=== PATIENT | male | born 1935 | race Caucasian/White ===

== ENCOUNTER 2018-01-19 05:34 | Inpatient (IN) ==
[2018-01-19] MEDS ORDERED: DIAZEPAM 5 MG TABLET PO ONE (07:29)
[2018-01-19] MEDS ORDERED: diphenhydrAMINE CAP 25 MG CAPSULE PO ONE (07:29)
[2018-01-19] MEDS ORDERED: MAGNESIUM SULF RIDER 2 GM in PREMIX 1 EACH IV PRN (07:29)
[2018-01-19] MEDS ORDERED: POTASSIUM CHLORIDE RIDER 10 MEQ in PREMIX 1 EACH IV PRN (07:29)
[2018-01-19] MEDS ORDERED: ASPIRIN 325 MG TABLET PO ONE (07:29)
[2018-01-19] MEDS ORDERED: DEXTROSE 5% NACL 0.45% 1,000 ML IV SCH (07:30)
[2018-01-19 08:00] LABS: INR 1.4; PT Patient Result 14.7 SECS
[2018-01-19] MEDS ORDERED: DIAZEPAM 5 MG TABLET ONE (08:18)
[2018-01-19] MEDS ORDERED: ASPIRIN 325 MG TABLET ONE (08:18)
[2018-01-19] MEDS ORDERED: diphenhydrAMINE CAP 25 MG CAPSULE ONE (08:18)
[2018-01-19] MEDS ORDERED: MIDAZOLAM 2 MG/2 ML VIAL ONE (08:25)
[2018-01-19] MEDS ORDERED: LIDOCAINE 1%/EPI INJ 20 ML VIAL ONE (08:25)
[2018-01-19] MEDS ORDERED: HEPARIN/NACL 0.9% 2 UNITS/ML 1,000 ML IV ONE (08:25)
[2018-01-19] MEDS ORDERED: fentaNYL 100 MCG/2 ML VIAL ONE (08:26)
[2018-01-19] MEDS ORDERED: WARFARIN 2 MG TABLET PO SCH (10:00)
[2018-01-19] MEDS ORDERED: WARFARIN 4 MG TABLET PO SCH (10:00)
[2018-01-19] MEDS ORDERED: ACETAMINOPHEN 325 MG TABLET PO PRN (15:37)
[2018-01-19] MEDS ORDERED: ACETAMINOPHEN/CODEINE 300-30 MG TABLET PO PRN (15:37)
[2018-01-19] MEDS: HYDROmorphone 2 MG/1 ML VIAL IV PRN (20:55)
[2018-01-19] MEDS: GLIMEPIRIDE 4 MG TABLET PO SCH (20:55)
[2018-01-19] MEDS: TAMSULOSIN 0.4 MG CAPSULE PO SCH (20:55)
[2018-01-19] MEDS: LISINOPRIL 10 MG TABLET PO SCH (20:55)
[2018-01-20] MEDS ORDERED: hydrALAZINE 20 MG/1 ML VIAL IV PRN (00:41)
[2018-01-20] MEDS: HYDROmorphone 2 MG/1 ML VIAL IV PRN ×2 (02:27→21:19)
[2018-01-20 04:38] LABS: Basophils # 0.1 10*3/uL (0.0-0.2); Basophils % 0.5 % (0.0-0.8); Eosinophils # 0.2 10*3/uL (0.0-0.87); Eosinophils % 1.4 % (0.00-10.9); Hematocrit 40.7 VOL% (42.0-52.0); Hemoglobin 13.3 GM/DL (14.0-18.0); Immature Granulocytes % 0.3 %; Immature Granulocytes Absolute 0.04 #; Lymphocytes # 1.2 10*3/uL (1.4-4.0); Lymphocytes % 9.1 % (21.2-54.2); Mean Corpuscular HGB Conc 32.7 GM/DL (32-36); Mean Corpuscular Hemoglobin 30 PG (27-34); Mean Corpuscular Volume 90.8 FL (87-102); Mean Platelet Volume 10.6 FL (9.6-12.0); Monocytes # 1.4 10*3/uL (0.11-0.8); Monocytes % 10.6 % (1.7-12.7); Neutrophils # 10.2 10*3/uL (1.4-7.4); Neutrophils % 78.1 % (38.7-73.9); Platelet Count 276 T/CUMM (130-400); Red Blood Count 4.48 MC/CUMM (3.8-5.5); Red Cell Distribution Width 14.5 % (9.3-17.3); White Blood Count 13.1 T/CUMM (4-12)
[2018-01-20 05:06] LABS: Potassium 3.8 MMOL/L (3.5-5.1)
[2018-01-20] MEDS ORDERED: CEFUROXIME INJ 1,500 MG in SYRINGE 1 EACH IV ONE (06:16)
[2018-01-20] MEDS ORDERED: DEXTROSE 50% 25 GM/50 ML VIAL IV PRN (06:16)
[2018-01-20] MEDS ORDERED: GLUCAGON 1 MG VIAL IM PRN (06:16)
[2018-01-20 06:38] LABS: ABG HCO3 25.2 MMOL/L (20-26); ABG Oxygen Saturation 94.8 % (95-100); ABG PH 7.436 (7.35-7.45); ABG PO2 71.5 MM HG (80-95); ABG TCO2 21.6 MMOL/L (23-27)
[2018-01-20] MEDS: DILTIAZEM CD 300 MG CAPSULE PO SCH ×2 (07:26→10:48)
[2018-01-20] MEDS ORDERED: ENOXAPARIN 80 MG/0.8 ML SYRINGE SUBCUT ONE (09:00)
[2018-01-20] MEDS ORDERED: ATROPINE 1 MG/10 ML SYRINGE ONE (09:29)
[2018-01-20] MEDS: SODIUM CHLORIDE 0.9% 1,000 ML IV SCH (10:47)
[2018-01-20] MEDS: CHLORHEXIDINE 4% SOLN 118 ML BOTTLE TOP SCH ×2 (10:48→18:41)
[2018-01-20] MEDS ORDERED: ETOMIDATE 40 MG/20 ML VIAL IV ONE (11:11)
[2018-01-20] MEDS ORDERED: PROPOFOL 200 MG/20 ML VIAL IV ONE (11:11)
[2018-01-20] MEDS: GLIMEPIRIDE 4 MG TABLET PO SCH ×2 (11:23→21:19)
[2018-01-20] MEDS: CITALOPRAM 20 MG TABLET PO SCH (11:23)
[2018-01-20] MEDS: TAMSULOSIN 0.4 MG CAPSULE PO SCH ×2 (11:23→21:19)
[2018-01-20] MEDS: GEMFIBROZIL 600 MG TABLET PO SCH (11:23)
[2018-01-20] MEDS: LISINOPRIL 10 MG TABLET PO SCH ×2 (11:23→21:19)
[2018-01-20] MEDS: CHLORHEXIDINE 0.12% ORAL RINSE 60 ML BOTTLE SWISH/SPIT SCH ×2 (12:38→21:19)
[2018-01-20] MEDS ORDERED: DIGOXIN 0.125 MG TABLET PO SCH (13:00)
[2018-01-21] MEDS: CHLORHEXIDINE 4% SOLN 118 ML BOTTLE TOP SCH (04:34)
[2018-01-21] MEDS ORDERED: VANCOMYCIN 1,000 MG VIAL ONE (05:19)
[2018-01-21] MEDS ORDERED: FAMOTIDINE 20 MG TABLET PO ONE (05:30)
[2018-01-21] MEDS: LISINOPRIL 10 MG TABLET PO SCH ×2 (05:41→11:33)
[2018-01-21] MEDS: DILTIAZEM CD 300 MG CAPSULE PO SCH ×2 (05:41→11:38)
[2018-01-21] MEDS: CHLORHEXIDINE 0.12% ORAL RINSE 60 ML BOTTLE SWISH/SPIT SCH ×3 (05:42→22:18)
[2018-01-21] MEDS ORDERED: diphenhydrAMINE CAP 25 MG CAPSULE PO ONE (06:00)
[2018-01-21] MEDS ORDERED: CEFUROXIME INJ 1,500 MG in SYRINGE 1 EACH IV ONE (06:00)
[2018-01-21] MEDS ORDERED: DIAZEPAM 5 MG TABLET PO ONE ×2 (06:00→06:09)
[2018-01-21] MEDS ORDERED: SUFentanil 250 MCG/5 ML AMP ONE (06:15)
[2018-01-21] MEDS ORDERED: ALBUMIN 5% 12.5 GM/250 ML VIAL IV ONE ×2 (06:43→09:47)
[2018-01-21 07:45] LABS: ABG Base Excess -3.3 MMOL/L (-2.5-2.5); ABG HCO3 21.4 MMOL/L (20-26); ABG Oxygen Saturation 99.4 % (95-100); ABG PCO2 37.3 MM HG (35-48); ABG PH 7.376 (7.35-7.45); ABG PO2 405.1 MM HG (80-95); ABG TCO2 22.5 MMOL/L (23-27); Glucose Heart Surgery 68 MG/DL (74-106); Ionized Calcium Arterial 1.06 MMOL/L (1.21-1.46); PCO2 Patient Temp Arterial 37.3 MMHG; PH Patient Temp Arterial 7.376; PO2 Patient Temp Arterial 405.1 MM HG; Patient Temperature 37 CELCIUS; Potassium Heart/CVR 3.2 MMOL/L (3.5-5.1); Sodium Heart/CVR 140 MMOL/L (135-145)
[2018-01-21 07:56] LABS: Apearance,Urine CLEAR (Clear); Bilirubin,Urine Negative (Negative); Blood, Urine Negative (Negative); Glucose,Urine (UA) Negative (Negative); Ketones,Urine Negative (Negative); Mucus,Urine Occasional /LPF (Occasional); Nitrite,Urine Negative (Negative); Protein,Urine 30 MG/DL; RBC,Urine 7 /HPF (0-4); Squamous Epithelial Cell,Urine Occasional /HPF (0-10); Urine Color Yellow (Yellow); Urine Specific Gravity 1.013 (1.001-1.035); WBC,Urine 1 /HPF (0-6)
[2018-01-21 08:26] LABS: Hematocrit Heart Surgery 26.7 PERCENT (42-52); Hemoglobin Heart Surgery 8.6 G/DL (14.0-18.0); PCO2 Patient Temp Venous 41.2 MM HG; PH Patient Temp Venous 7.362; Potassium Heart/CVR 3.5 MMOL/L (3.5-5.1); VBG Base Excess -1.9 MEQ/L (0-4); VBG HCO3 22.6 MEQ/L (24-28); VBG PCO2 41.2 MMHG (41-51); VBG PH 7.362
[2018-01-21 08:55] LABS: Hematocrit Heart Surgery 27.1 PERCENT (42-52); Hemoglobin Heart Surgery 8.7 G/DL (14.0-18.0); PCO2 Patient Temp Venous 35.1 MM HG; PH Patient Temp Venous 7.403; PO2 Patient Temp Venous 40.6 MM HG; Potassium Heart/CVR 3.6 MMOL/L (3.5-5.1); VBG Base Excess -2.3 MEQ/L (0-4); VBG HCO3 22.2 MEQ/L (24-28); VBG Oxygen Saturation 81.3 %; VBG PCO2 38.7 MMHG (41-51); VBG PH 7.374; VBG PO2 46.6 MMHG (17-40)
[2018-01-21] MEDS ORDERED: PROTAMINE SULFATE 250 MG/25 ML VIAL IV ONE (09:33)
[2018-01-21] MEDS ORDERED: ALBUMIN 25% 25 GM/100 ML VIAL IV ONE (09:33)
[2018-01-21] MEDS ORDERED: MAGNESIUM SULFATE 10 GM/20 ML VIAL IV ONE (09:33)
[2018-01-21] MEDS ORDERED: DEXTROSE 5% KCL 20 MEQ 20 MEQ/1,000 ML BAG IV ONE (09:33)
[2018-01-21] MEDS ORDERED: SODIUM BICARBONATE 50 MEQ/50 ML SYRINGE IV ONE ×3 (09:33→10:37)
[2018-01-21] MEDS ORDERED: MANNITOL 12.5 GM/50 ML VIAL IV ONE (09:34)
[2018-01-21] MEDS ORDERED: FUROSEMIDE 20 MG/2 ML VIAL ONE (09:34)
[2018-01-21] MEDS ORDERED: POTASSIUM CHLORIDE 20 MEQ/10 ML VIAL ONE (09:34)
[2018-01-21] MEDS ORDERED: PHENYLEPHRINE 1 MG/10 ML SYRINGE IV ONE (09:34)
[2018-01-21] MEDS ORDERED: methylPREDNISolone SOD SUC 1,000 MG/8 ML VIAL ONE (09:34)
[2018-01-21] MEDS ORDERED: HEPARIN 10,000 UNIT/10 ML VIAL ONE (09:34)
[2018-01-21 09:45] LABS: ABG HCO3 20.3 MMOL/L (20-26); ABG PCO2 37.3 MM HG (35-48); ABG PH 7.342 (7.35-7.45); ABG TCO2 18.7 MMOL/L (23-27); Glucose Heart Surgery 206 MG/DL (74-106); Hematocrit Heart Surgery 27.7 PERCENT (42-52); Hemoglobin Heart Surgery 8.9 G/DL (14.0-18.0); Ionized Calcium Arterial 1.16 MMOL/L (1.21-1.46); PCO2 Patient Temp Arterial 37.3 MMHG; PH Patient Temp Arterial 7.342; Patient Temperature 37 CELCIUS; Potassium Heart/CVR 3.7 MMOL/L (3.5-5.1); Sodium Heart/CVR 135 MMOL/L (135-145)
[2018-01-21] MEDS ORDERED: POTASSIUM CHLORIDE RIDER 100 ML IV ONE (09:45)
[2018-01-21] MEDS ORDERED: CALCIUM CHLORIDE 1,000 MG/10 ML SYRINGE IV ONE (09:45)
[2018-01-21] MEDS ORDERED: PHENYLEPHRINE DRIP 40 MG/250 ML PREMIX IV ONE (09:45)
[2018-01-21] MEDS ORDERED: NITROGLYCERIN DRIP 50 MG/250 ML BOTTLE IV ONE ×2 (10:00→10:38)
[2018-01-21] MEDS ORDERED: AMIODARONE 450 MG/9 ML VIAL IV ONE (10:00)
[2018-01-21] MEDS ORDERED: MIDAZOLAM 10 MG/2 ML VIAL ONE ×2 (10:28→10:37)
[2018-01-21] MEDS ORDERED: AMIODARONE INJ 450 MG in DEXTROSE 5% 241 ML IV SCH ×2 (10:30→11:30)
[2018-01-21] MEDS ORDERED: CALCIUM CHLORIDE 1,000 MG/10 ML VIAL IV ONE (10:36)
[2018-01-21] MEDS ORDERED: HEPARIN/NACL 0.9% 2 UNITS/ML 500 ML IV ONE (10:37)
[2018-01-21] MEDS ORDERED: AMIODARONE 150 MG/3 ML VIAL ONE (10:37)
[2018-01-21] MEDS ORDERED: PHENYLEPHRINE DRIP 20 MG/250 ML PREMIX IV ONE (10:37)
[2018-01-21] MEDS ORDERED: SEVOFLURANE 1 UNIT/15 MINUTE INH ONE (10:38)
[2018-01-21] MEDS ORDERED: VECURONIUM 10 MG VIAL IV ONE (10:38)
[2018-01-21] MEDS ORDERED: SODIUM CHLORIDE 0.9% 100 ML IV ONE (10:38)
[2018-01-21] MEDS ORDERED: LACTATED RINGERS 1,000 ML IV ONE (10:38)
[2018-01-21] MEDS ORDERED: SODIUM CHLORIDE 0.9% 1,000 ML IV ONE (10:38)
[2018-01-21] MEDS ORDERED: SODIUM CHLORIDE 0.9% 250 ML IV ONE (10:38)
[2018-01-21] MEDS ORDERED: ETOMIDATE 40 MG/20 ML VIAL IV ONE (10:38)
[2018-01-21] MEDS ORDERED: INSULIN REGULAR 100 UNIT/ML IV ONE (10:42)
[2018-01-21] MEDS ORDERED: MAGNESIUM SULF RIDER 2 GM in PREMIX 1 EACH IV PRN (10:42)
[2018-01-21] MEDS ORDERED: NITROPRUSSIDE 100 MG in DEXTROSE 5% 250 ML IV PRN (10:42)
[2018-01-21] MEDS ORDERED: INSULIN REGULAR 100 UNIT/ML IV PRN (10:42)
[2018-01-21] MEDS ORDERED: MAGNESIUM SULF RIDER 4 GM in PREMIX 1 EACH IV PRN (10:42)
[2018-01-21] MEDS ORDERED: MIDAZOLAM 2 MG/2 ML VIAL IV PRN (10:42)
[2018-01-21] MEDS ORDERED: ONDANSETRON 4 MG/2 ML VIAL IV PRN (10:42)
[2018-01-21] MEDS ORDERED: CALCIUM CHLORIDE 1,000 MG/10 ML SYRINGE IV PRN (10:42)
[2018-01-21] MEDS ORDERED: MORPHINE 4 MG/1 ML VIAL IV PRN (10:42)
[2018-01-21] MEDS ORDERED: ACETAMINOPHEN 650 MG SUPP RECTAL PRN (10:42)
[2018-01-21] MEDS ORDERED: LACTATED RINGERS 250 ML IV PRN (10:42)
[2018-01-21] MEDS ORDERED: MORPHINE 10 MG/1 ML VIAL IV PRN (10:42)
[2018-01-21] MEDS ORDERED: PHENYLEPHRINE DRIP 40 MG/250 ML PREMIX IV PRN (10:42)
[2018-01-21] MEDS ORDERED: DEXTROSE 50% 25 GM/50 ML VIAL IV PRN ×2 (10:42)
[2018-01-21] MEDS ORDERED: VECURONIUM 10 MG VIAL IV PRN ×2 (10:42)
[2018-01-21] MEDS ORDERED: MIDAZOLAM 10 MG/2 ML VIAL IV PRN (10:42)
[2018-01-21 10:45] LABS: ABG Base Excess -3.2 MMOL/L (-2.5-2.5); ABG HCO3 21.7 MMOL/L (20-26); ABG Oxygen Saturation 98.1 % (95-100); ABG PCO2 42.6 MM HG (35-48); ABG PH 7.332 (7.35-7.45); ABG TCO2 20.9 MMOL/L (23-27); Glucose Heart Surgery 191 MG/DL (74-106); Hematocrit Heart Surgery 28.3 PERCENT (42-52); Hemoglobin Heart Surgery 9.1 G/DL (14.0-18.0); Potassium Heart/CVR 3.9 MMOL/L (3.5-5.1)
[2018-01-21] MEDS ORDERED: PROTAMINE SULFATE 50 MG/5 ML VIAL IV ONE ×2 (10:45→10:51)
[2018-01-21] MEDS ORDERED: INSULIN REGULAR DRIP 100 ML IV SCH (11:00)
[2018-01-21] MEDS: SODIUM CHLORIDE 0.45% 1,000 ML IV SCH ×2 (11:28)
[2018-01-21] MEDS: GEMFIBROZIL 600 MG TABLET PO SCH (11:37)
[2018-01-21] MEDS: GLIMEPIRIDE 4 MG TABLET PO SCH (11:38)
[2018-01-21] MEDS: SODIUM CHLORIDE 0.9% 1,000 ML IV SCH (11:38)
[2018-01-21] MEDS: CITALOPRAM 20 MG TABLET PO SCH (11:38)
[2018-01-21] MEDS: TAMSULOSIN 0.4 MG CAPSULE PO SCH (11:38)
[2018-01-21] MEDS: POTASSIUM CHLORIDE RIDER 20 MEQ in PREMIX 1 EACH IV PRN ×4 (11:40→20:27)
[2018-01-21] MEDS: LACTATED RINGERS 1,000 ML IV PRN ×3 (12:00→16:48)
[2018-01-21] MEDS: POTASSIUM CHLORIDE RIDER 10 MEQ in PREMIX 1 EACH IV PRN ×2 (12:14→21:22)
[2018-01-21] MEDS: KETOROLAC 30 MG/1 ML VIAL IV SCH ×3 (12:16→23:29)
[2018-01-21 12:20] LABS: Albumin 2.8 G/DL (3.4-5.0); Bilirubin,Total 1.4 MG/DL (0.2-1.0); Calcium 8.2 MG/DL (8.5-10.1); Osmolality,Calculated 283.5 MOS/KG (273-304); Potassium 4.1 MMOL/L (3.5-5.1)
[2018-01-21 12:21] LABS: CKMB % 5.1 %
[2018-01-21 12:23] LABS: Troponin I 1.51 NG/ML (0.00-0.045)
[2018-01-21 13:09] LABS: ABG HCO3 23.7 MMOL/L (20-26); ABG Oxygen Saturation 97.6 % (95-100); ABG PCO2 39.4 MM HG (35-48); ABG PH 7.397 (7.35-7.45); ABG PO2 109.7 MM HG (80-95); ABG TCO2 24.9 MMOL/L (23-27); Glucose Heart Surgery 188 MG/DL (74-106); Hemoglobin Heart Surgery 11.6 G/DL (14.0-18.0); Potassium Heart/CVR 3.5 MMOL/L (3.5-5.1)
[2018-01-21] MEDS: ALBUMIN 5% 12.5 GM in PREMIX 1 EACH IV PRN ×2 (15:23→15:39)
[2018-01-21 15:41] LABS: ABG Base Excess -1.2 MMOL/L (-2.5-2.5); ABG HCO3 23.4 MMOL/L (20-26); ABG Oxygen Saturation 98.8 % (95-100); ABG PCO2 39.3 MM HG (35-48); ABG PH 7.386 (7.35-7.45); ABG TCO2 21.3 MMOL/L (23-27); Glucose Heart Surgery 125 MG/DL (74-106); Hematocrit Heart Surgery 32.7 PERCENT (42-52); Hemoglobin Heart Surgery 10.6 G/DL (14.0-18.0)
[2018-01-21 18:08] LABS: ABG Base Excess -0.4 MMOL/L (-2.5-2.5); ABG HCO3 24.1 MMOL/L (20-26); ABG Oxygen Saturation 98.7 % (95-100); ABG PCO2 36.2 MM HG (35-48); ABG PH 7.423 (7.35-7.45); ABG TCO2 21.3 MMOL/L (23-27); Glucose Heart Surgery 97 MG/DL (74-106); Hematocrit Heart Surgery 33.3 PERCENT (42-52); Hemoglobin Heart Surgery 10.8 G/DL (14.0-18.0); Potassium Heart/CVR 3.8 MMOL/L (3.5-5.1)
[2018-01-21] MEDS: CEFUROXIME INJ 1,500 MG in SYRINGE 1 EACH IV SCH (18:25)
[2018-01-21 19:20] LABS: Basophils % 0.2 % (0.0-0.8); Eosinophils % 0.5 % (0.00-10.9); Hematocrit 28.4 VOL% (42.0-52.0); Immature Granulocytes % 0.8 %; Immature Granulocytes Absolute 0.07 #; Lymphocytes # 0.3 10*3/uL (1.4-4.0); Lymphocytes % 3.6 % (21.2-54.2); Mean Corpuscular HGB Conc 31.7 GM/DL (32-36); Mean Corpuscular Hemoglobin 30 PG (27-34); Mean Corpuscular Volume 93.7 FL (87-102); Mean Platelet Volume 11.2 FL (9.6-12.0); Monocytes # 0.8 10*3/uL (0.11-0.8); Monocytes % 9.2 % (1.7-12.7); Neutrophils # 7.4 10*3/uL (1.4-7.4); Neutrophils % 85.7 % (38.7-73.9); Platelet Count 169 T/CUMM (130-400); Red Blood Count 3.03 MC/CUMM (3.8-5.5); Red Cell Distribution Width 14.6 % (9.3-17.3); White Blood Count 8.6 T/CUMM (4-12)
[2018-01-21 19:25] LABS: CKMB % 4.4 %
[2018-01-21 19:27] LABS: Troponin I 1.84 NG/ML (0.00-0.045)
[2018-01-21 19:48] LABS: INR 1.7; PT Patient Result 17.4 SECS; Partial Thromboplastin Time 31.5 SECS (0-40)
[2018-01-21 19:48] LABS: ABG Base Excess -1.1 MMOL/L (-2.5-2.5); ABG HCO3 23.5 MMOL/L (20-26); ABG Oxygen Saturation 98.8 % (95-100); ABG PCO2 40.6 MM HG (35-48); ABG PH 7.378 (7.35-7.45); ABG TCO2 21.5 MMOL/L (23-27); Glucose Heart Surgery 127 MG/DL (74-106); Hematocrit Heart Surgery 33.4 PERCENT (42-52); Hemoglobin Heart Surgery 10.8 G/DL (14.0-18.0); Potassium Heart/CVR 3.9 MMOL/L (3.5-5.1)
[2018-01-22 03:05] LABS: ABG HCO3 21.9 MMOL/L (20-26); ABG Oxygen Saturation 97.6 % (95-100); ABG PCO2 42.2 MM HG (35-48); ABG PH 7.339 (7.35-7.45); ABG TCO2 20.4 MMOL/L (23-27); Glucose Heart Surgery 140 MG/DL (74-106); Hematocrit Heart Surgery 34.9 PERCENT (42-52); Hemoglobin Heart Surgery 11.3 G/DL (14.0-18.0)
[2018-01-22 03:07] LABS: Hematocrit 34.2 VOL% (42.0-52.0); Hemoglobin 11.1 GM/DL (14.0-18.0); Immature Granulocytes % 0.5 %; Immature Granulocytes Absolute 0.06 #; Lymphocytes # 0.4 10*3/uL (1.4-4.0); Lymphocytes % 3.2 % (21.2-54.2); Mean Corpuscular HGB Conc 32.5 GM/DL (32-36); Mean Corpuscular Hemoglobin 30 PG (27-34); Mean Corpuscular Volume 92.2 FL (87-102); Mean Platelet Volume 10.5 FL (9.6-12.0); Monocytes # 0.5 10*3/uL (0.11-0.8); Monocytes % 4.2 % (1.7-12.7); Neutrophils % 92.1 % (38.7-73.9); Platelet Count 170 T/CUMM (130-400); Red Blood Count 3.71 MC/CUMM (3.8-5.5); Red Cell Distribution Width 14.3 % (9.3-17.3)
[2018-01-22 03:31] LABS: Band Neutrophils 8 % (0-10); Lymphocytes 1 % (20-55); Segmented Neutrophils 87 % (50-85); Total Cells Counted 100
[2018-01-22 03:37] LABS: Ovalocytes 1+; Platelet Estimate Normal
[2018-01-22 03:38] LABS: Albumin 3.2 G/DL (3.4-5.0); Bilirubin,Direct 0.27 MG/DL (0.0-0.20); Bilirubin,Total 0.6 MG/DL (0.2-1.0); Calcium 8.3 MG/DL (8.5-10.1); Osmolality,Calculated 288.1 MOS/KG (273-304); Total Protein 6.5 G/DL (6.4-8.3)
[2018-01-22 03:44] LABS: CKMB % 4.3 %
[2018-01-22 03:46] LABS: Troponin I 1.88 NG/ML (0.00-0.045)
[2018-01-22] MEDS: KETOROLAC 30 MG/1 ML VIAL IV SCH ×4 (04:45→17:45)
[2018-01-22] MEDS: POTASSIUM CHLORIDE RIDER 20 MEQ in PREMIX 1 EACH IV PRN (04:46)
[2018-01-22] MEDS: CEFUROXIME INJ 1,500 MG in SYRINGE 1 EACH IV SCH (06:15)
[2018-01-22] MEDS ORDERED: MIDAZOLAM 2 MG/2 ML VIAL IV ONE (09:06)
[2018-01-22] MEDS ORDERED: WARFARIN 10 MG TABLET PO ONE (09:27)
[2018-01-22 11:39] LABS: CKMB % 3.6 %
[2018-01-22 11:40] LABS: Troponin I 1.26 NG/ML (0.00-0.045)
[2018-01-22] MEDS ORDERED: MAGNESIUM SULF RIDER 4 GM in PREMIX 1 EACH IV PRN (12:00)
[2018-01-22] MEDS ORDERED: GLUCAGON 1 MG VIAL IM PRN ×2 (12:00)
[2018-01-22] MEDS ORDERED: SODIUM CHLOR 0.45% KCL 20 MEQ 20 MEQ/1,000 ML BAG IV SCH (12:00)
[2018-01-22] MEDS ORDERED: MAGNESIUM SULF RIDER 2 GM in PREMIX 1 EACH IV PRN (12:00)
[2018-01-22] MEDS ORDERED: ONDANSETRON 4 MG/2 ML VIAL IV PRN (12:00)
[2018-01-22] MEDS ORDERED: ZALEPLON 5 MG CAPSULE PO PRN (12:00)
[2018-01-22] MEDS ORDERED: ALUMINUM/MAGNES/SIMETH MAX STR 30 ML UDCUP PO PRN (12:00)
[2018-01-22] MEDS ORDERED: DEXTROSE 50% 25 GM/50 ML VIAL IV PRN ×2 (12:00)
[2018-01-22] MEDS: oxyCODONE/ACETAMINOPHEN 5-325 MG TABLET PO PRN ×2 (12:26→21:19)
[2018-01-22] MEDS: INSULIN REGULAR 100 UNIT/ML SUBCUT SCH ×3 (12:47→21:20)
[2018-01-22] MEDS: DIGOXIN 0.125 MG TABLET PO SCH (13:36)
[2018-01-22] MEDS: CHLORHEXIDINE 0.12% ORAL RINSE 60 ML BOTTLE SWISH/SPIT SCH ×2 (13:36→21:19)
[2018-01-22] MEDS: SODIUM CHLORIDE 0.45% 1,000 ML IV SCH ×2 (13:37)
[2018-01-22] MEDS: LISINOPRIL 10 MG TABLET PO SCH (21:18)
[2018-01-22] MEDS: TAMSULOSIN 0.4 MG CAPSULE PO SCH (21:18)
[2018-01-22] MEDS: GLIMEPIRIDE 4 MG TABLET PO SCH (21:18)
[2018-01-23] MEDS: KETOROLAC 30 MG/1 ML VIAL IV SCH ×5 (00:35→23:36)
[2018-01-23] MEDS: INSULIN REGULAR 100 UNIT/ML SUBCUT SCH ×7 (01:47→23:35)
[2018-01-23 05:09] LABS: Basophils % 0.1 % (0.0-0.8); Hematocrit 33.1 VOL% (42.0-52.0); Hemoglobin 10.6 GM/DL (14.0-18.0); Immature Granulocytes % 0.7 %; Immature Granulocytes Absolute 0.12 #; Lymphocytes # 0.4 10*3/uL (1.4-4.0); Lymphocytes % 2.4 % (21.2-54.2); Mean Corpuscular Hemoglobin 30 PG (27-34); Mean Corpuscular Volume 92.7 FL (87-102); Mean Platelet Volume 11.1 FL (9.6-12.0); Monocytes # 1.3 10*3/uL (0.11-0.8); Monocytes % 7.4 % (1.7-12.7); Neutrophils # 15.4 10*3/uL (1.4-7.4); Neutrophils % 89.4 % (38.7-73.9); Platelet Count 205 T/CUMM (130-400); Red Blood Count 3.57 MC/CUMM (3.8-5.5); Red Cell Distribution Width 14.6 % (9.3-17.3); White Blood Count 17.2 T/CUMM (4-12)
[2018-01-23 05:35] LABS: INR 2.9
[2018-01-23 05:37] LABS: PT Patient Result 29.4 SECS
[2018-01-23 05:46] LABS: Alanine Aminotransferase 16 U/L (16-61); Albumin 2.8 G/DL (3.4-5.0); Alkaline Phosphatase 92 U/L (45-117); Aspartate Amino Transferase 18 U/L (0-37); Bilirubin,Indirect 0.3 MG/DL (0.0-1.0); Blood Urea Nitrogen 44 MG/DL (7-18); Calcium 8.5 MG/DL (8.5-10.1); Glucose 224 MG/DL (74-106); Osmolality,Calculated 298.3 MOS/KG (273-304); Potassium 4.4 MMOL/L (3.5-5.1); Sodium 141 MMOL/L (136-145); Total Protein 6.1 G/DL (6.4-8.3)
[2018-01-23] MEDS ORDERED: FUROSEMIDE 40 MG/4 ML VIAL IV ONE (06:00)
[2018-01-23 06:25] LABS: Band Neutrophils 6 % (0-10); Lymphocytes 4 % (20-55); Segmented Neutrophils 88 % (50-85); Total Cells Counted 100
[2018-01-23 06:26] LABS: Platelet Estimate Normal
[2018-01-23] MEDS ORDERED: DILTIAZEM CD 300 MG CAPSULE PO SCH (09:00)
[2018-01-23] MEDS: DOCUSATE SODIUM 100 MG CAPSULE PO SCH (10:08)
[2018-01-23] MEDS: ASPIRIN EC 325 MG TABLET PO SCH (10:08)
[2018-01-23] MEDS: TAMSULOSIN 0.4 MG CAPSULE PO SCH ×2 (10:09→20:57)
[2018-01-23] MEDS: GEMFIBROZIL 600 MG TABLET PO SCH (10:09)
[2018-01-23] MEDS: GLIMEPIRIDE 4 MG TABLET PO SCH ×2 (10:09→20:57)
[2018-01-23] MEDS: LISINOPRIL 10 MG TABLET PO SCH ×2 (10:09→20:57)
[2018-01-23] MEDS: FERROUS SULFATE 325 MG TABLET PO SCH (10:09)
[2018-01-23] MEDS: PANTOPRAZOLE 40 MG TABLET PO SCH (10:09)
[2018-01-23] MEDS: CHLORHEXIDINE 0.12% ORAL RINSE 60 ML BOTTLE SWISH/SPIT SCH ×2 (10:10→20:58)
[2018-01-23] MEDS: CITALOPRAM 20 MG TABLET PO SCH (10:10)
[2018-01-23] MEDS: DIGOXIN 0.125 MG TABLET PO SCH (13:23)
[2018-01-23] MEDS: oxyCODONE/ACETAMINOPHEN 5-325 MG TABLET PO PRN ×2 (14:37→20:56)
[2018-01-23] MEDS: metFORMIN 500 MG TABLET PO SCH (17:23)
[2018-01-23] MEDS ORDERED: WARFARIN 2.5 MG TABLET PO SCH (18:00)
[2018-01-24] MEDS: MAGNESIUM HYDROXIDE SUSP 30 ML UDCUP PO PRN (04:05)
[2018-01-24 04:13] LABS: Basophils % 0.1 % (0.0-0.8); Eosinophils % 0.2 % (0.00-10.9); Hematocrit 32.2 VOL% (42.0-52.0); Hemoglobin 10.5 GM/DL (14.0-18.0); Immature Granulocytes % 0.5 %; Immature Granulocytes Absolute 0.07 #; Lymphocytes # 1.1 10*3/uL (1.4-4.0); Lymphocytes % 7.1 % (21.2-54.2); Mean Corpuscular HGB Conc 32.6 GM/DL (32-36); Mean Corpuscular Hemoglobin 30 PG (27-34); Mean Corpuscular Volume 91.2 FL (87-102); Mean Platelet Volume 11.3 FL (9.6-12.0); Monocytes # 1.5 10*3/uL (0.11-0.8); Monocytes % 10.2 % (1.7-12.7); Neutrophils # 12.1 10*3/uL (1.4-7.4); Neutrophils % 81.9 % (38.7-73.9); Platelet Count 210 T/CUMM (130-400); Red Blood Count 3.53 MC/CUMM (3.8-5.5); Red Cell Distribution Width 14.7 % (9.3-17.3); White Blood Count 14.7 T/CUMM (4-12)
[2018-01-24 04:22] LABS: PT Patient Result 20.3 SECS
[2018-01-24] MEDS: INSULIN REGULAR 100 UNIT/ML SUBCUT SCH ×5 (04:46→21:09)
[2018-01-24 05:03] LABS: Albumin 2.8 G/DL (3.4-5.0); Bilirubin,Total 0.6 MG/DL (0.2-1.0); Calcium 8.4 MG/DL (8.5-10.1); Osmolality,Calculated 302.8 MOS/KG (273-304); Potassium 4.2 MMOL/L (3.5-5.1); Total Protein 5.5 G/DL (6.4-8.3)
[2018-01-24 05:05] LABS: Alanine Aminotransferase 16 U/L (16-61); Albumin 2.7 G/DL (3.4-5.0); Alkaline Phosphatase 94 U/L (45-117); Aspartate Amino Transferase 12 U/L (0-37); Bilirubin,Indirect 0.8 MG/DL (0.0-1.0)
[2018-01-24 05:07] LABS: Troponin I 0.611 NG/ML (0.00-0.045)
[2018-01-24] MEDS: KETOROLAC 30 MG/1 ML VIAL IV SCH ×3 (05:35→18:09)
[2018-01-24] MEDS: ASPIRIN EC 325 MG TABLET PO SCH (10:20)
[2018-01-24] MEDS: GEMFIBROZIL 600 MG TABLET PO SCH (10:20)
[2018-01-24] MEDS: metFORMIN 500 MG TABLET PO SCH ×2 (10:20→16:35)
[2018-01-24] MEDS: DOCUSATE SODIUM 100 MG CAPSULE PO SCH (10:20)
[2018-01-24] MEDS: LISINOPRIL 10 MG TABLET PO SCH ×2 (10:21→21:46)
[2018-01-24] MEDS: FERROUS SULFATE 325 MG TABLET PO SCH (10:21)
[2018-01-24] MEDS: CHLORHEXIDINE 0.12% ORAL RINSE 60 ML BOTTLE SWISH/SPIT SCH ×2 (10:21→21:46)
[2018-01-24] MEDS: PANTOPRAZOLE 40 MG TABLET PO SCH (10:21)
[2018-01-24] MEDS: GLIMEPIRIDE 4 MG TABLET PO SCH ×2 (10:21→21:45)
[2018-01-24] MEDS: TAMSULOSIN 0.4 MG CAPSULE PO SCH ×2 (10:21→21:46)
[2018-01-24] MEDS: LACTULOSE 20 GM/30 ML UDCUP PO PRN (10:22)
[2018-01-24] MEDS: CITALOPRAM 20 MG TABLET PO SCH (10:27)
[2018-01-24] MEDS ORDERED: ALBUTEROL/IPRATROPIUM 3 ML NEB RESP TX STA (13:00)
[2018-01-24] MEDS ORDERED: FUROSEMIDE 40 MG/4 ML VIAL IV ONE (13:12)
[2018-01-24 13:54] LABS: ABG Base Excess -2.6 MMOL/L (-2.5-2.5); ABG HCO3 22.1 MMOL/L (20-26); ABG Oxygen Saturation 91.9 % (95-100); ABG PCO2 45.4 MM HG (35-48); ABG PH 7.323 (7.35-7.45); ABG TCO2 21.4 MMOL/L (23-27)
[2018-01-24] MEDS ORDERED: FUROSEMIDE 40 MG/4 ML VIAL IM SCH (16:00)
[2018-01-24] MEDS: FUROSEMIDE 40 MG/4 ML VIAL IV SCH ×2 (16:35→21:46)
[2018-01-24] MEDS: ALBUTEROL/IPRATROPIUM 3 ML NEB RESP TX SCH (19:15)
[2018-01-25] MEDS: KETOROLAC 30 MG/1 ML VIAL IV SCH ×2 (00:04→06:14)
[2018-01-25] MEDS: INSULIN REGULAR 100 UNIT/ML SUBCUT SCH ×7 (00:04→23:48)
[2018-01-25] MEDS: ALBUTEROL/IPRATROPIUM 3 ML NEB RESP TX SCH ×4 (00:05→20:03)
[2018-01-25] MEDS ORDERED: AMIODARONE 150 MG/3 ML VIAL ONE (00:54)
[2018-01-25] MEDS ORDERED: AMIODARONE 450 MG/9 ML VIAL IV ONE ×2 (00:54→01:00)
[2018-01-25] MEDS ORDERED: AMIODARONE INJ 150 MG in DEXTROSE 5% 100 ML IV ONE (00:55)
[2018-01-25] MEDS ORDERED: DILTIAZEM 25 MG/5 ML VIAL IV ONE ×2 (01:00→01:10)
[2018-01-25] MEDS ORDERED: AMIODARONE INJ 450 MG in DEXTROSE 5% 241 ML IV SCH (01:30)
[2018-01-25] MEDS: POTASSIUM CHLORIDE RIDER 10 MEQ in PREMIX 1 EACH IV PRN ×3 (02:10→06:24)
[2018-01-25 05:29] LABS: INR 1.7; PT Patient Result 17.2 SECS
[2018-01-25 05:37] LABS: Basophils % 0.1 % (0.0-0.8); Eosinophils # 0.1 10*3/uL (0.0-0.87); Eosinophils % 0.6 % (0.00-10.9); Hemoglobin 10.4 GM/DL (14.0-18.0); Immature Granulocytes % 0.6 %; Immature Granulocytes Absolute 0.07 #; Lymphocytes % 7.7 % (21.2-54.2); Mean Corpuscular HGB Conc 32.5 GM/DL (32-36); Mean Corpuscular Hemoglobin 30 PG (27-34); Mean Corpuscular Volume 90.9 FL (87-102); Mean Platelet Volume 11.1 FL (9.6-12.0); Monocytes # 1.3 10*3/uL (0.11-0.8); Monocytes % 10.3 % (1.7-12.7); Neutrophils # 10.1 10*3/uL (1.4-7.4); Neutrophils % 80.7 % (38.7-73.9); Platelet Count 201 T/CUMM (130-400); Red Blood Count 3.52 MC/CUMM (3.8-5.5); Red Cell Distribution Width 14.5 % (9.3-17.3); White Blood Count 12.6 T/CUMM (4-12)
[2018-01-25 06:01] LABS: Calcium 8.5 MG/DL (8.5-10.1); Potassium 4.3 MMOL/L (3.5-5.1)
[2018-01-25] MEDS: GLIMEPIRIDE 4 MG TABLET PO SCH ×2 (08:34→21:26)
[2018-01-25] MEDS: GEMFIBROZIL 600 MG TABLET PO SCH (08:34)
[2018-01-25] MEDS: FERROUS SULFATE 325 MG TABLET PO SCH (08:34)
[2018-01-25] MEDS: LISINOPRIL 10 MG TABLET PO SCH ×2 (08:34→21:26)
[2018-01-25] MEDS: PANTOPRAZOLE 40 MG TABLET PO SCH (08:34)
[2018-01-25] MEDS: CITALOPRAM 20 MG TABLET PO SCH (08:34)
[2018-01-25] MEDS: ASPIRIN EC 325 MG TABLET PO SCH (08:34)
[2018-01-25] MEDS: DOCUSATE SODIUM 100 MG CAPSULE PO SCH (08:34)
[2018-01-25] MEDS: metFORMIN 500 MG TABLET PO SCH ×2 (08:34→16:31)
[2018-01-25] MEDS: TAMSULOSIN 0.4 MG CAPSULE PO SCH ×2 (08:34→21:26)
[2018-01-25] MEDS: CHLORHEXIDINE 0.12% ORAL RINSE 60 ML BOTTLE SWISH/SPIT SCH ×2 (08:37→21:30)
[2018-01-25] MEDS ORDERED: KETOROLAC 30 MG/1 ML VIAL IV ONE (10:10)
[2018-01-25] MEDS ORDERED: AMIODARONE 200 MG TABLET PO SCH (10:30)
[2018-01-25] MEDS: DILTIAZEM CD 120 MG CAPSULE PO SCH (10:56)
[2018-01-25] MEDS: DIGOXIN 0.125 MG TABLET PO SCH (13:49)
[2018-01-25] MEDS: WARFARIN 4 MG TABLET PO SCH (17:55)
[2018-01-25] MEDS: oxyCODONE/ACETAMINOPHEN 5-325 MG TABLET PO PRN (21:26)
[2018-01-26] MEDS: oxyCODONE/ACETAMINOPHEN 5-325 MG TABLET PO PRN ×3 (00:05→21:46)
[2018-01-26] MEDS: ALBUTEROL/IPRATROPIUM 3 ML NEB RESP TX SCH ×4 (02:00→18:52)
[2018-01-26] MEDS: INSULIN REGULAR 100 UNIT/ML SUBCUT SCH ×5 (04:39→21:47)
[2018-01-26 05:21] LABS: Basophils % 0.1 % (0.0-0.8); Eosinophils # 0.2 10*3/uL (0.0-0.87); Eosinophils % 2.3 % (0.00-10.9); Hematocrit 29.4 VOL% (42.0-52.0); Hemoglobin 9.6 GM/DL (14.0-18.0); Immature Granulocytes % 0.4 %; Immature Granulocytes Absolute 0.04 #; Lymphocytes # 1.1 10*3/uL (1.4-4.0); Mean Corpuscular HGB Conc 32.7 GM/DL (32-36); Mean Corpuscular Hemoglobin 30 PG (27-34); Mean Corpuscular Volume 90.7 FL (87-102); Mean Platelet Volume 11.1 FL (9.6-12.0); Monocytes # 1.2 10*3/uL (0.11-0.8); Monocytes % 11.4 % (1.7-12.7); Neutrophils # 7.7 10*3/uL (1.4-7.4); Neutrophils % 74.8 % (38.7-73.9); Platelet Count 211 T/CUMM (130-400); Red Blood Count 3.24 MC/CUMM (3.8-5.5); Red Cell Distribution Width 14.4 % (9.3-17.3); White Blood Count 10.2 T/CUMM (4-12)
[2018-01-26 05:29] LABS: INR 1.7; PT Patient Result 18.1 SECS
[2018-01-26 06:00] LABS: Alanine Aminotransferase 15 U/L (16-61); Albumin 2.4 G/DL (3.4-5.0); Alkaline Phosphatase 82 U/L (45-117); Aspartate Amino Transferase 9 U/L (0-37); Bilirubin,Indirect 0.3 MG/DL (0.0-1.0); Blood Urea Nitrogen 47 MG/DL (7-18); Calcium 8.6 MG/DL (8.5-10.1); Glucose 97 MG/DL (74-106); Osmolality,Calculated 292.3 MOS/KG (273-304); Sodium 141 MMOL/L (136-145); Total Protein 5.9 G/DL (6.4-8.3); Troponin I 0.265 NG/ML (0.00-0.045)
[2018-01-26 06:39] LABS: Calcium 8.6 MG/DL (8.5-10.1); Osmolality,Calculated 295.1 MOS/KG (273-304); Potassium 4.1 MMOL/L (3.5-5.1)
[2018-01-26] MEDS: ASPIRIN EC 325 MG TABLET PO SCH (08:57)
[2018-01-26] MEDS: GLIMEPIRIDE 4 MG TABLET PO SCH ×2 (08:57→21:46)
[2018-01-26] MEDS: DOCUSATE SODIUM 100 MG CAPSULE PO SCH (08:57)
[2018-01-26] MEDS: FERROUS SULFATE 325 MG TABLET PO SCH (08:57)
[2018-01-26] MEDS: CITALOPRAM 20 MG TABLET PO SCH (08:57)
[2018-01-26] MEDS: metFORMIN 500 MG TABLET PO SCH ×2 (08:57→17:13)
[2018-01-26] MEDS: DILTIAZEM CD 120 MG CAPSULE PO SCH (08:58)
[2018-01-26] MEDS: TAMSULOSIN 0.4 MG CAPSULE PO SCH ×2 (08:58→21:46)
[2018-01-26] MEDS: GEMFIBROZIL 600 MG TABLET PO SCH (08:58)
[2018-01-26] MEDS: LISINOPRIL 10 MG TABLET PO SCH ×2 (08:58→21:46)
[2018-01-26] MEDS: PANTOPRAZOLE 40 MG TABLET PO SCH (08:58)
[2018-01-26] MEDS: CHLORHEXIDINE 0.12% ORAL RINSE 60 ML BOTTLE SWISH/SPIT SCH ×2 (08:59→21:46)
[2018-01-26] MEDS: DIGOXIN 0.125 MG TABLET PO SCH (12:26)
[2018-01-26] MEDS: WARFARIN 4 MG TABLET PO SCH (17:13)
[2018-01-27] MEDS: INSULIN REGULAR 100 UNIT/ML SUBCUT SCH (00:43)
[2018-01-27] MEDS: ALBUTEROL/IPRATROPIUM 3 ML NEB RESP TX SCH ×4 (00:47→19:11)
[2018-01-27] MEDS: oxyCODONE/ACETAMINOPHEN 5-325 MG TABLET PO PRN ×3 (01:18→18:38)
[2018-01-27 04:00] LABS: Basophils % 0.1 % (0.0-0.8); Eosinophils # 0.4 10*3/uL (0.0-0.87); Hematocrit 30.1 VOL% (42.0-52.0); Hemoglobin 9.4 GM/DL (14.0-18.0); Immature Granulocytes % 0.4 %; Immature Granulocytes Absolute 0.04 #; Lymphocytes # 0.9 10*3/uL (1.4-4.0); Lymphocytes % 9.9 % (21.2-54.2); Mean Corpuscular HGB Conc 31.2 GM/DL (32-36); Mean Corpuscular Hemoglobin 30 PG (27-34); Mean Corpuscular Volume 94.7 FL (87-102); Mean Platelet Volume 10.4 FL (9.6-12.0); Monocytes # 1.1 10*3/uL (0.11-0.8); Monocytes % 12.6 % (1.7-12.7); Neutrophils # 6.6 10*3/uL (1.4-7.4); Platelet Count 233 T/CUMM (130-400); Red Blood Count 3.18 MC/CUMM (3.8-5.5); Red Cell Distribution Width 14.2 % (9.3-17.3); White Blood Count 9.1 T/CUMM (4-12)
[2018-01-27 04:14] LABS: INR 2.1
[2018-01-27 04:19] LABS: PT Patient Result 21.8 SECS
[2018-01-27 04:31] LABS: Alanine Aminotransferase 13 U/L (16-61); Albumin 2.4 G/DL (3.4-5.0); Alkaline Phosphatase 83 U/L (45-117); Aspartate Amino Transferase 10 U/L (0-37); Bilirubin,Indirect 0.2 MG/DL (0.0-1.0); Blood Urea Nitrogen 36 MG/DL (7-18); Glucose 100 MG/DL (74-106); Osmolality,Calculated 290.1 MOS/KG (273-304); Potassium 4.4 MMOL/L (3.5-5.1); Sodium 142 MMOL/L (136-145); Total Protein 5.8 G/DL (6.4-8.3)
[2018-01-27 04:33] LABS: Troponin I 0.236 NG/ML (0.00-0.045)
[2018-01-27] MEDS: PANTOPRAZOLE 40 MG TABLET PO SCH (09:41)
[2018-01-27] MEDS: metFORMIN 500 MG TABLET PO SCH ×2 (09:41→17:08)
[2018-01-27] MEDS: DOCUSATE SODIUM 100 MG CAPSULE PO SCH (09:41)
[2018-01-27] MEDS: DILTIAZEM CD 120 MG CAPSULE PO SCH (09:42)
[2018-01-27] MEDS: LISINOPRIL 10 MG TABLET PO SCH ×2 (09:42→21:15)
[2018-01-27] MEDS: GEMFIBROZIL 600 MG TABLET PO SCH (09:42)
[2018-01-27] MEDS: FERROUS SULFATE 325 MG TABLET PO SCH (09:42)
[2018-01-27] MEDS: ASPIRIN EC 325 MG TABLET PO SCH (09:42)
[2018-01-27] MEDS: CITALOPRAM 20 MG TABLET PO SCH (09:42)
[2018-01-27] MEDS: GLIMEPIRIDE 4 MG TABLET PO SCH ×2 (09:43→21:15)
[2018-01-27] MEDS: CHLORHEXIDINE 0.12% ORAL RINSE 60 ML BOTTLE SWISH/SPIT SCH ×2 (09:43→21:15)
[2018-01-27] MEDS: TAMSULOSIN 0.4 MG CAPSULE PO SCH ×2 (09:51→21:15)
[2018-01-27] MEDS: DIGOXIN 0.125 MG TABLET PO SCH (12:41)
[2018-01-27] MEDS: WARFARIN 4 MG TABLET PO SCH (17:08)
[2018-01-27] MEDS: MAGNESIUM HYDROXIDE SUSP 30 ML UDCUP PO PRN (21:15)
[2018-01-27] MEDS: ACETAMINOPHEN 325 MG TABLET PO PRN (21:15)
[2018-01-28 05:40] LABS: Basophils % 0.3 % (0.0-0.8); Eosinophils # 0.3 10*3/uL (0.0-0.87); Eosinophils % 3.6 % (0.00-10.9); Hematocrit 30.4 VOL% (42.0-52.0); Hemoglobin 9.6 GM/DL (14.0-18.0); Immature Granulocytes % 0.6 %; Immature Granulocytes Absolute 0.05 #; Lymphocytes % 11.7 % (21.2-54.2); Mean Corpuscular HGB Conc 31.6 GM/DL (32-36); Mean Corpuscular Hemoglobin 29 PG (27-34); Mean Corpuscular Volume 92.7 FL (87-102); Mean Platelet Volume 10.5 FL (9.6-12.0); Monocytes # 1.2 10*3/uL (0.11-0.8); Monocytes % 13.2 % (1.7-12.7); Neutrophils # 6.1 10*3/uL (1.4-7.4); Neutrophils % 70.6 % (38.7-73.9); Platelet Count 302 T/CUMM (130-400); Red Blood Count 3.28 MC/CUMM (3.8-5.5); Red Cell Distribution Width 14.5 % (9.3-17.3); White Blood Count 8.7 T/CUMM (4-12)
[2018-01-28 05:45] LABS: INR 2.6
[2018-01-28 05:47] LABS: PT Patient Result 26.2 SECS
[2018-01-28 06:11] LABS: Calcium 8.6 MG/DL (8.5-10.1); Potassium 4.5 MMOL/L (3.5-5.1)
[2018-01-28] MEDS: ALBUTEROL/IPRATROPIUM 3 ML NEB RESP TX SCH ×4 (07:04→19:10)
[2018-01-28] MEDS: CITALOPRAM 20 MG TABLET PO SCH (08:34)
[2018-01-28] MEDS: DOCUSATE SODIUM 100 MG CAPSULE PO SCH (08:34)
[2018-01-28] MEDS: metFORMIN 500 MG TABLET PO SCH ×2 (08:34→17:26)
[2018-01-28] MEDS: PANTOPRAZOLE 40 MG TABLET PO SCH (08:34)
[2018-01-28] MEDS: ASPIRIN EC 325 MG TABLET PO SCH (08:35)
[2018-01-28] MEDS: DILTIAZEM CD 120 MG CAPSULE PO SCH (08:35)
[2018-01-28] MEDS: LISINOPRIL 10 MG TABLET PO SCH ×2 (08:35→20:53)
[2018-01-28] MEDS: GLIMEPIRIDE 4 MG TABLET PO SCH ×2 (08:35→20:53)
[2018-01-28] MEDS: FERROUS SULFATE 325 MG TABLET PO SCH (08:35)
[2018-01-28] MEDS: TAMSULOSIN 0.4 MG CAPSULE PO SCH ×2 (08:35→20:53)
[2018-01-28] MEDS: GEMFIBROZIL 600 MG TABLET PO SCH (08:35)
[2018-01-28] MEDS: CHLORHEXIDINE 0.12% ORAL RINSE 60 ML BOTTLE SWISH/SPIT SCH ×2 (08:37→21:49)
[2018-01-28] MEDS: DIGOXIN 0.125 MG TABLET PO SCH (12:29)
[2018-01-28] MEDS ORDERED: FUROSEMIDE 40 MG/4 ML VIAL IV ONE (17:06)
[2018-01-28] MEDS: PIPERACILLIN/TAZOBACTAM 3,375 MG in SODIUM CHLORIDE 0.9% 100 ML IV SCH (17:26)
[2018-01-28] MEDS: WARFARIN 2 MG TABLET PO SCH (17:26)
[2018-01-28] MEDS: VANCOMYCIN INJ 1,000 MG in SODIUM CHLORIDE 0.9% 250 ML IV SCH (19:04)
[2018-01-28] MEDS: ACETAMINOPHEN 325 MG TABLET PO PRN (20:52)
[2018-01-29] MEDS: PIPERACILLIN/TAZOBACTAM 3,375 MG in SODIUM CHLORIDE 0.9% 100 ML IV SCH ×3 (01:20→17:16)
[2018-01-29] MEDS: ACETAMINOPHEN 325 MG TABLET PO PRN ×3 (01:29→18:42)
[2018-01-29] MEDS: ALBUTEROL/IPRATROPIUM 3 ML NEB RESP TX SCH ×4 (01:58→19:19)
[2018-01-29] MEDS: VANCOMYCIN INJ 1,000 MG in SODIUM CHLORIDE 0.9% 250 ML IV SCH ×2 (05:44→17:15)
[2018-01-29 06:27] LABS: Basophils # 0.1 10*3/uL (0.0-0.2); Basophils % 0.4 % (0.0-0.8); Eosinophils # 0.1 10*3/uL (0.0-0.87); Eosinophils % 0.8 % (0.00-10.9); Hematocrit 32.2 VOL% (42.0-52.0); Hemoglobin 10.4 GM/DL (14.0-18.0); Immature Granulocytes % 0.9 %; Immature Granulocytes Absolute 0.12 #; Lymphocytes # 0.8 10*3/uL (1.4-4.0); Lymphocytes % 6.3 % (21.2-54.2); Mean Corpuscular HGB Conc 32.3 GM/DL (32-36); Mean Corpuscular Hemoglobin 30 PG (27-34); Mean Corpuscular Volume 91.2 FL (87-102); Mean Platelet Volume 10.1 FL (9.6-12.0); Monocytes # 1.8 10*3/uL (0.11-0.8); Monocytes % 13.9 % (1.7-12.7); Neutrophils # 10.1 10*3/uL (1.4-7.4); Neutrophils % 77.7 % (38.7-73.9); Platelet Count 344 T/CUMM (130-400); Red Blood Count 3.53 MC/CUMM (3.8-5.5); Red Cell Distribution Width 14.2 % (9.3-17.3)
[2018-01-29 06:55] LABS: Calcium 8.4 MG/DL (8.5-10.1); Osmolality,Calculated 283.1 MOS/KG (273-304)
[2018-01-29 06:57] LABS: Albumin 2.5 G/DL (3.4-5.0); Bilirubin,Total 0.7 MG/DL (0.2-1.0); Calcium 8.5 MG/DL (8.5-10.1); Osmolality,Calculated 284.1 MOS/KG (273-304); Total Protein 6.4 G/DL (6.4-8.3)
[2018-01-29] MEDS ORDERED: MIDAZOLAM 10 MG/2 ML VIAL ONE (09:31)
[2018-01-29] MEDS: DOCUSATE SODIUM 100 MG CAPSULE PO SCH (09:34)
[2018-01-29] MEDS: TAMSULOSIN 0.4 MG CAPSULE PO SCH ×2 (09:36→20:39)
[2018-01-29] MEDS: GLIMEPIRIDE 4 MG TABLET PO SCH ×2 (09:37→20:39)
[2018-01-29] MEDS: GEMFIBROZIL 600 MG TABLET PO SCH (09:37)
[2018-01-29] MEDS: FERROUS SULFATE 325 MG TABLET PO SCH (09:37)
[2018-01-29] MEDS: metFORMIN 500 MG TABLET PO SCH ×2 (09:37→17:17)
[2018-01-29] MEDS: LISINOPRIL 10 MG TABLET PO SCH ×2 (09:37→20:39)
[2018-01-29] MEDS: CITALOPRAM 20 MG TABLET PO SCH (09:37)
[2018-01-29] MEDS: PANTOPRAZOLE 40 MG TABLET PO SCH (09:38)
[2018-01-29] MEDS: ASPIRIN EC 325 MG TABLET PO SCH (09:38)
[2018-01-29] MEDS ORDERED: MIDAZOLAM 10 MG/2 ML VIAL IV ONE (09:45)
[2018-01-29] MEDS: DILTIAZEM CD 120 MG CAPSULE PO SCH (10:59)
[2018-01-29] MEDS: FUROSEMIDE 40 MG TABLET PO SCH (10:59)
[2018-01-29] MEDS: POTASSIUM CHLORIDE 20 MEQ TABLET PO SCH (10:59)
[2018-01-29] MEDS: CHLORHEXIDINE 0.12% ORAL RINSE 60 ML BOTTLE SWISH/SPIT SCH ×2 (11:04→20:40)
[2018-01-29] MEDS: DIGOXIN 0.125 MG TABLET PO SCH (13:48)
[2018-01-29] MEDS: WARFARIN 2 MG TABLET PO SCH (17:17)
[2018-01-29] MEDS: oxyCODONE/ACETAMINOPHEN 5-325 MG TABLET PO PRN (21:22)
[2018-01-30] MEDS: ALBUTEROL/IPRATROPIUM 3 ML NEB RESP TX SCH ×4 (00:15→19:37)
[2018-01-30] MEDS: PIPERACILLIN/TAZOBACTAM 3,375 MG in SODIUM CHLORIDE 0.9% 100 ML IV SCH ×2 (01:30→08:45)
[2018-01-30] MEDS: oxyCODONE/ACETAMINOPHEN 5-325 MG TABLET PO PRN ×2 (03:51→20:41)
[2018-01-30 06:07] LABS: Basophils # 0.1 10*3/uL (0.0-0.2); Basophils % 0.4 % (0.0-0.8); Eosinophils # 0.3 10*3/uL (0.0-0.87); Eosinophils % 2.3 % (0.00-10.9); Hematocrit 31.9 VOL% (42.0-52.0); Hemoglobin 10.1 GM/DL (14.0-18.0); Immature Granulocytes % 0.6 %; Immature Granulocytes Absolute 0.07 #; Lymphocytes # 1.1 10*3/uL (1.4-4.0); Lymphocytes % 9.6 % (21.2-54.2); Mean Corpuscular HGB Conc 31.7 GM/DL (32-36); Mean Corpuscular Hemoglobin 29 PG (27-34); Mean Platelet Volume 10.1 FL (9.6-12.0); Monocytes # 1.8 10*3/uL (0.11-0.8); Monocytes % 15.4 % (1.7-12.7); Neutrophils # 8.2 10*3/uL (1.4-7.4); Neutrophils % 71.7 % (38.7-73.9); Platelet Count 341 T/CUMM (130-400); Red Blood Count 3.43 MC/CUMM (3.8-5.5); Red Cell Distribution Width 14.2 % (9.3-17.3); White Blood Count 11.5 T/CUMM (4-12)
[2018-01-30] MEDS: VANCOMYCIN INJ 1,000 MG in SODIUM CHLORIDE 0.9% 250 ML IV SCH (06:19)
[2018-01-30 06:34] LABS: INR 3.9
[2018-01-30 06:38] LABS: PT Patient Result 38.8 SECS
[2018-01-30 06:41] LABS: Calcium 8.2 MG/DL (8.5-10.1); Osmolality,Calculated 281.3 MOS/KG (273-304); Potassium 4.1 MMOL/L (3.5-5.1)
[2018-01-30] MEDS: LISINOPRIL 10 MG TABLET PO SCH ×2 (08:49→20:41)
[2018-01-30] MEDS: FUROSEMIDE 40 MG TABLET PO SCH (08:49)
[2018-01-30] MEDS: CITALOPRAM 20 MG TABLET PO SCH (08:49)
[2018-01-30] MEDS: ASPIRIN EC 325 MG TABLET PO SCH (08:49)
[2018-01-30] MEDS: PANTOPRAZOLE 40 MG TABLET PO SCH (08:49)
[2018-01-30] MEDS: DILTIAZEM CD 120 MG CAPSULE PO SCH (08:49)
[2018-01-30] MEDS: TAMSULOSIN 0.4 MG CAPSULE PO SCH ×2 (08:50→20:41)
[2018-01-30] MEDS: MAGNESIUM HYDROXIDE SUSP 30 ML UDCUP PO PRN (08:50)
[2018-01-30] MEDS: GEMFIBROZIL 600 MG TABLET PO SCH (08:50)
[2018-01-30] MEDS: KETOROLAC 30 MG/1 ML VIAL IV PRN (08:50)
[2018-01-30] MEDS: DOCUSATE SODIUM 100 MG CAPSULE PO SCH (08:50)
[2018-01-30] MEDS: FERROUS SULFATE 325 MG TABLET PO SCH (08:50)
[2018-01-30] MEDS: POTASSIUM CHLORIDE 20 MEQ TABLET PO SCH (08:50)
[2018-01-30] MEDS: CHLORHEXIDINE 0.12% ORAL RINSE 60 ML BOTTLE SWISH/SPIT SCH ×2 (08:57→20:43)
[2018-01-30] MEDS: metFORMIN 500 MG TABLET PO SCH ×2 (08:57→17:12)
[2018-01-30] MEDS: GLIMEPIRIDE 4 MG TABLET PO SCH ×2 (08:57→20:41)
[2018-01-30] MEDS: DIGOXIN 0.125 MG TABLET PO SCH (13:45)
[2018-01-31] MEDS: ALBUTEROL/IPRATROPIUM 3 ML NEB RESP TX SCH ×4 (00:54→19:38)
[2018-01-31] MEDS: oxyCODONE/ACETAMINOPHEN 5-325 MG TABLET PO PRN ×3 (03:21→20:54)
[2018-01-31 05:19] LABS: Basophils % 0.4 % (0.0-0.8); Eosinophils # 0.3 10*3/uL (0.0-0.87); Eosinophils % 2.7 % (0.00-10.9); Hematocrit 31.4 VOL% (42.0-52.0); Hemoglobin 9.7 GM/DL (14.0-18.0); Immature Granulocytes % 0.5 %; Immature Granulocytes Absolute 0.05 #; Lymphocytes # 0.6 10*3/uL (1.4-4.0); Lymphocytes % 6.2 % (21.2-54.2); Mean Corpuscular HGB Conc 30.9 GM/DL (32-36); Mean Corpuscular Hemoglobin 29 PG (27-34); Mean Corpuscular Volume 93.5 FL (87-102); Mean Platelet Volume 9.9 FL (9.6-12.0); Monocytes % 10.2 % (1.7-12.7); Neutrophils # 8.2 10*3/uL (1.4-7.4); Platelet Count 326 T/CUMM (130-400); Red Blood Count 3.36 MC/CUMM (3.8-5.5); White Blood Count 10.2 T/CUMM (4-12)
[2018-01-31 05:32] LABS: PT Patient Result 39.9 SECS
[2018-01-31 05:43] LABS: Calcium 8.5 MG/DL (8.5-10.1); Osmolality,Calculated 284.1 MOS/KG (273-304); Potassium 3.9 MMOL/L (3.5-5.1)
[2018-01-31] MEDS: PANTOPRAZOLE 40 MG TABLET PO SCH (09:07)
[2018-01-31] MEDS: metFORMIN 500 MG TABLET PO SCH (09:07)
[2018-01-31] MEDS: CITALOPRAM 20 MG TABLET PO SCH (09:07)
[2018-01-31] MEDS: FUROSEMIDE 40 MG TABLET PO SCH (09:07)
[2018-01-31] MEDS: ASPIRIN EC 325 MG TABLET PO SCH (09:07)
[2018-01-31] MEDS: DILTIAZEM CD 120 MG CAPSULE PO SCH (09:07)
[2018-01-31] MEDS: DOCUSATE SODIUM 100 MG CAPSULE PO SCH (09:07)
[2018-01-31] MEDS: LISINOPRIL 10 MG TABLET PO SCH ×2 (09:07→20:54)
[2018-01-31] MEDS: GLIMEPIRIDE 4 MG TABLET PO SCH ×2 (09:08→20:54)
[2018-01-31] MEDS: POTASSIUM CHLORIDE 20 MEQ TABLET PO SCH (09:08)
[2018-01-31] MEDS: TAMSULOSIN 0.4 MG CAPSULE PO SCH ×2 (09:08→20:54)
[2018-01-31] MEDS: GEMFIBROZIL 600 MG TABLET PO SCH (09:08)
[2018-01-31] MEDS: FERROUS SULFATE 325 MG TABLET PO SCH (09:08)
[2018-01-31] MEDS: KETOROLAC 30 MG/1 ML VIAL IV PRN (09:10)
[2018-01-31] MEDS: CHLORHEXIDINE 0.12% ORAL RINSE 60 ML BOTTLE SWISH/SPIT SCH ×2 (09:14→20:57)
[2018-01-31] MEDS: POTASSIUM CHLORIDE 20 MEQ TABLET PO PRN ×2 (09:21→12:10)
[2018-01-31] MEDS: DIGOXIN 0.125 MG TABLET PO SCH (12:10)
[2018-02-01] MEDS: ALBUTEROL/IPRATROPIUM 3 ML NEB RESP TX SCH ×4 (00:35→19:14)
[2018-02-01] MEDS: oxyCODONE/ACETAMINOPHEN 5-325 MG TABLET PO PRN ×3 (02:08→21:39)
[2018-02-01] MEDS: PANTOPRAZOLE 40 MG TABLET PO SCH (08:56)
[2018-02-01] MEDS: POTASSIUM CHLORIDE 20 MEQ TABLET PO SCH (08:56)
[2018-02-01] MEDS: DILTIAZEM CD 120 MG CAPSULE PO SCH (08:56)
[2018-02-01] MEDS: CITALOPRAM 20 MG TABLET PO SCH (08:56)
[2018-02-01] MEDS: ASPIRIN EC 325 MG TABLET PO SCH (08:56)
[2018-02-01] MEDS: DOCUSATE SODIUM 100 MG CAPSULE PO SCH (08:57)
[2018-02-01] MEDS: GEMFIBROZIL 600 MG TABLET PO SCH (08:57)
[2018-02-01] MEDS: LISINOPRIL 10 MG TABLET PO SCH ×2 (08:57→21:39)
[2018-02-01] MEDS: TAMSULOSIN 0.4 MG CAPSULE PO SCH ×2 (08:57→21:39)
[2018-02-01] MEDS: GLIMEPIRIDE 4 MG TABLET PO SCH ×2 (08:57→21:39)
[2018-02-01] MEDS: FERROUS SULFATE 325 MG TABLET PO SCH (08:57)
[2018-02-01] MEDS: FUROSEMIDE 40 MG TABLET PO SCH (08:57)
[2018-02-01] MEDS: CHLORHEXIDINE 0.12% ORAL RINSE 60 ML BOTTLE SWISH/SPIT SCH ×2 (09:01→21:40)
[2018-02-01 09:43] LABS: INR 2.5
[2018-02-01 09:53] LABS: PT Patient Result 25.6 SECS
[2018-02-01] MEDS: DIGOXIN 0.125 MG TABLET PO SCH (12:10)
[2018-02-01] MEDS: NAPROXEN 250 MG TABLET PO SCH ×2 (12:14→21:38)
[2018-02-01] MEDS ORDERED: WARFARIN 2 MG TABLET PO SCH (18:00)
[2018-02-01] MEDS: LACTULOSE 20 GM/30 ML UDCUP PO PRN (21:38)
[2018-02-02] MEDS: ALBUTEROL/IPRATROPIUM 3 ML NEB RESP TX SCH (00:36)
[2018-02-02] MEDS: oxyCODONE/ACETAMINOPHEN 5-325 MG TABLET PO PRN (02:11)
[2018-02-02 03:56] LABS: Basophils # 0.1 10*3/uL (0.0-0.2); Basophils % 0.5 % (0.0-0.8); Eosinophils # 0.4 10*3/uL (0.0-0.87); Eosinophils % 4.4 % (0.00-10.9); Hematocrit 30.5 VOL% (42.0-52.0); Hemoglobin 9.5 GM/DL (14.0-18.0); Immature Granulocytes % 0.4 %; Immature Granulocytes Absolute 0.04 #; Lymphocytes # 0.8 10*3/uL (1.4-4.0); Lymphocytes % 8.7 % (21.2-54.2); Mean Corpuscular HGB Conc 31.1 GM/DL (32-36); Mean Corpuscular Hemoglobin 30 PG (27-34); Mean Corpuscular Volume 94.7 FL (87-102); Mean Platelet Volume 9.7 FL (9.6-12.0); Monocytes % 10.9 % (1.7-12.7); Neutrophils # 6.9 10*3/uL (1.4-7.4); Neutrophils % 75.1 % (38.7-73.9); Platelet Count 334 T/CUMM (130-400); Red Blood Count 3.22 MC/CUMM (3.8-5.5); White Blood Count 9.1 T/CUMM (4-12)
[2018-02-02 04:05] LABS: INR 2.1
[2018-02-02 04:13] LABS: Calcium 8.6 MG/DL (8.5-10.1); Potassium 4.1 MMOL/L (3.5-5.1)
[2018-02-02] MEDS: NAPROXEN 250 MG TABLET PO SCH (08:52)
[2018-02-02] MEDS: DILTIAZEM CD 120 MG CAPSULE PO SCH (08:52)
[2018-02-02] MEDS: GEMFIBROZIL 600 MG TABLET PO SCH (08:52)
[2018-02-02] MEDS: FUROSEMIDE 40 MG TABLET PO SCH (08:52)
[2018-02-02] MEDS: TAMSULOSIN 0.4 MG CAPSULE PO SCH (08:52)
[2018-02-02] MEDS: PANTOPRAZOLE 40 MG TABLET PO SCH (08:52)
[2018-02-02] MEDS: FERROUS SULFATE 325 MG TABLET PO SCH (08:53)
[2018-02-02] MEDS: CITALOPRAM 20 MG TABLET PO SCH (08:53)
[2018-02-02] MEDS: ASPIRIN EC 325 MG TABLET PO SCH (08:53)
[2018-02-02] MEDS: DOCUSATE SODIUM 100 MG CAPSULE PO SCH (08:53)
[2018-02-02] MEDS: POTASSIUM CHLORIDE 20 MEQ TABLET PO SCH (08:53)
[2018-02-02] MEDS: LISINOPRIL 10 MG TABLET PO SCH (08:53)
[2018-02-02] MEDS: GLIMEPIRIDE 4 MG TABLET PO SCH (08:57)
[2018-02-02] MEDS: CHLORHEXIDINE 0.12% ORAL RINSE 60 ML BOTTLE SWISH/SPIT SCH (08:57)
[2018-02-02 12:12] VITALS: BP 106/62
== END 2018-02-02 13:13 | disposition home health service (06) | DRG 217 ==
LOC: N.CL 05:34 → N.TELES 14:11 → N.CVR 01-21 07:27 → N.TELES 01-22 13:35
PROVIDERS: ADMIT Internal Medicine Interventional Cardiology; ATTEND Internal Medicine Interventional Cardiology
PROC: IRTHORA (2018-01-25 14:15)

== ENCOUNTER 2018-02-10 23:23 | Inpatient (IN) ==
[2018-02-11] MEDS ORDERED: PANTOPRAZOLE 40 MG VIAL IV STA (01:00)
[2018-02-11 01:07] LABS: Basophils # 0.1 10*3/uL (0.0-0.2); Basophils % 0.6 % (0.0-0.8); Eosinophils # 0.2 10*3/uL (0.0-0.87); Eosinophils % 1.2 % (0.00-10.9); Hematocrit 30.4 VOL% (42.0-52.0); Hemoglobin 9.7 GM/DL (14.0-18.0); Immature Granulocytes % 0.8 %; Immature Granulocytes Absolute 0.13 #; Lymphocytes % 6.3 % (21.2-54.2); Mean Corpuscular HGB Conc 31.9 GM/DL (32-36); Mean Corpuscular Hemoglobin 29 PG (27-34); Mean Corpuscular Volume 90.7 FL (87-102); Mean Platelet Volume 10.1 FL (9.6-12.0); Monocytes # 1.3 10*3/uL (0.11-0.8); Monocytes % 7.9 % (1.7-12.7); Neutrophils # 13.4 10*3/uL (1.4-7.4); Neutrophils % 83.2 % (38.7-73.9); Platelet Count 339 T/CUMM (130-400); Red Blood Count 3.35 MC/CUMM (3.8-5.5); Red Cell Distribution Width 13.7 % (9.3-17.3); White Blood Count 16.1 T/CUMM (4-12)
[2018-02-11 01:12] LABS: INR 2.2
[2018-02-11 01:14] LABS: PT Patient Result 22.1 SECS
[2018-02-11 01:21] LABS: Albumin 2.8 G/DL (3.4-5.0); Bilirubin,Total 0.8 MG/DL (0.2-1.0); Calcium 8.8 MG/DL (8.5-10.1); Osmolality,Calculated 289.3 MOS/KG (273-304); Total Protein 6.5 G/DL (6.4-8.3)
[2018-02-11] MEDS ORDERED: SODIUM CHLORIDE 0.9% 1,000 ML IV PRN (02:06)
[2018-02-11] MEDS: MORPHINE 4 MG/1 ML VIAL IV PRN (02:50)
[2018-02-11 07:30] LABS: Hemoglobin 8.8 GM/DL (14.0-18.0)
[2018-02-11 07:41] LABS: INR 2.2
[2018-02-11 08:02] LABS: Albumin 2.5 G/DL (3.4-5.0); Calcium 8.2 MG/DL (8.5-10.1); Osmolality,Calculated 292.1 MOS/KG (273-304); Potassium 3.9 MMOL/L (3.5-5.1); Total Protein 5.9 G/DL (6.4-8.3)
[2018-02-11] MEDS: PANTOPRAZOLE 40 MG VIAL IV SCH ×2 (08:35→20:59)
[2018-02-11 14:45] LABS: Hematocrit 27.3 VOL% (42.0-52.0); Hemoglobin 8.8 GM/DL (14.0-18.0)
[2018-02-11 20:32] LABS: Hematocrit 27.9 VOL% (42.0-52.0); Hemoglobin 8.7 GM/DL (14.0-18.0)
[2018-02-12 06:35] LABS: INR 2.3
[2018-02-12 06:41] LABS: PT Patient Result 23.5 SECS
[2018-02-12 06:48] LABS: Calcium 8.3 MG/DL (8.5-10.1); Osmolality,Calculated 299.6 MOS/KG (273-304); Potassium 3.9 MMOL/L (3.5-5.1)
[2018-02-12 08:19] LABS: Basophils # 0.1 10*3/uL (0.0-0.2); Basophils % 1.1 % (0.0-0.8); Eosinophils # 0.7 10*3/uL (0.0-0.87); Eosinophils % 6.6 % (0.00-10.9); Hemoglobin 8.4 GM/DL (14.0-18.0); Immature Granulocytes % 0.3 %; Immature Granulocytes Absolute 0.03 #; Lymphocytes # 1.4 10*3/uL (1.4-4.0); Lymphocytes % 13.7 % (21.2-54.2); Mean Corpuscular HGB Conc 31.1 GM/DL (32-36); Mean Corpuscular Hemoglobin 28 PG (27-34); Mean Corpuscular Volume 90.6 FL (87-102); Mean Platelet Volume 10.1 FL (9.6-12.0); Monocytes # 1.1 10*3/uL (0.11-0.8); Monocytes % 11.3 % (1.7-12.7); Neutrophils # 6.7 10*3/uL (1.4-7.4); Platelet Count 299 T/CUMM (130-400); Red Blood Count 2.98 MC/CUMM (3.8-5.5); Red Cell Distribution Width 13.9 % (9.3-17.3); White Blood Count 10.1 T/CUMM (4-12)
[2018-02-12 08:45] LABS: Basophils # 0.1 10*3/uL (0.0-0.2); Basophils % 0.8 % (0.0-0.8); Eosinophils # 0.7 10*3/uL (0.0-0.87); Eosinophils % 6.4 % (0.00-10.9); Hematocrit 24.1 VOL% (42.0-52.0); Hemoglobin 7.7 GM/DL (14.0-18.0); Lymphocytes # 1.4 10*3/uL (1.4-4.0); Lymphocytes % 13.3 % (21.2-54.2); Mean Corpuscular Hemoglobin 29 PG (27-34); Mean Corpuscular Volume 90.3 FL (87-102); Mean Platelet Volume 9.9 FL (9.6-12.0); Monocytes # 1.1 10*3/uL (0.11-0.8); Monocytes % 10.4 % (1.7-12.7); Neutrophils # 7.1 10*3/uL (1.4-7.4); Neutrophils % 68.1 % (38.7-73.9); Platelet Count 288 T/CUMM (130-400); Red Blood Count 2.67 MC/CUMM (3.8-5.5); White Blood Count 10.4 T/CUMM (4-12)
[2018-02-12] MEDS ORDERED: DILTIAZEM CD 240 MG CAPSULE PO SCH (09:00)
[2018-02-12] MEDS: PANTOPRAZOLE 40 MG VIAL IV SCH (09:33)
[2018-02-12] MEDS: DIGOXIN 0.125 MG TABLET PO SCH (09:33)
[2018-02-12] MEDS ORDERED: SODIUM CHLORIDE 0.9% 1,000 ML IV PRN ×3 (10:10→10:21)
[2018-02-12] MEDS ORDERED: NOREPINEPHRINE 8 MG in SODIUM CHLORIDE 0.9% 242 ML IV PRN (10:21)
[2018-02-12] MEDS ORDERED: PHYTONADIONE 10 MG/1 ML AMP SUBCUT ONE (10:23)
[2018-02-12] MEDS: DEXT 5% NACL 0.9% KCL 20 MEQ 20 MEQ/1,000 ML BAG IV SCH ×2 (11:04→20:51)
[2018-02-12] MEDS: PANTOPRAZOLE INJ 200 MG in SODIUM CHLORIDE 0.9% 250 ML IV SCH (14:32)
[2018-02-12] MEDS: MELATONIN 3 MG TABLET PO PRN (20:44)
[2018-02-12] MEDS: ONDANSETRON 4 MG/2 ML VIAL IV PRN (20:44)
[2018-02-12 22:34] LABS: Hematocrit 23.8 VOL% (42.0-52.0); Hemoglobin 7.7 GM/DL (14.0-18.0)
[2018-02-13 05:17] LABS: Hematocrit 24.1 VOL% (42.0-52.0); Hemoglobin 7.5 GM/DL (14.0-18.0)
[2018-02-13 05:23] LABS: INR 1.8; PT Patient Result 18.7 SECS
[2018-02-13] MEDS: DEXT 5% NACL 0.9% KCL 20 MEQ 20 MEQ/1,000 ML BAG IV SCH (06:35)
[2018-02-13] MEDS ORDERED: PHYTONADIONE 10 MG/1 ML AMP SUBCUT ONE (08:22)
[2018-02-13] MEDS: DIGOXIN 0.125 MG TABLET PO SCH (09:29)
[2018-02-13] MEDS ORDERED: FUROSEMIDE 40 MG/4 ML VIAL ONE (12:25)
[2018-02-13] MEDS ORDERED: FUROSEMIDE 40 MG/4 ML VIAL IV ONE (12:33)
[2018-02-13] MEDS: PIPERACILLIN/TAZOBACTAM 3,375 MG in SODIUM CHLORIDE 0.9% 100 ML IV SCH ×2 (13:46→20:13)
[2018-02-13] MEDS ORDERED: ALBUTEROL/IPRATROPIUM 3 ML NEB RESP TX PRN (14:54)
[2018-02-13] MEDS: DILTIAZEM CD 240 MG CAPSULE PO SCH (15:24)
[2018-02-13] MEDS: TAMSULOSIN 0.4 MG CAPSULE PO SCH ×2 (15:25→20:11)
[2018-02-13] MEDS: FUROSEMIDE 40 MG/4 ML VIAL IV SCH (15:25)
[2018-02-13] MEDS ORDERED: FUROSEMIDE 20 MG/2 ML VIAL IV SCH (16:00)
[2018-02-13 16:31] LABS: Apearance,Urine CLEAR (Clear); Bacteria,Urine Occasional /HPF (Few); Bilirubin,Urine Negative (Negative); Blood, Urine Large mg/dL (Negative); Glucose,Urine (UA) Negative (Negative); Ketones,Urine Negative (Negative); Mucus,Urine Occasional /LPF (Occasional); Nitrite,Urine Negative (Negative); Protein,Urine Negative; RBC,Urine 65 /HPF (0-4); Squamous Epithelial Cell,Urine Occasional /HPF (0-10); Urine Color Colorless (Yellow); Urine Specific Gravity 1.005 (1.001-1.035); Urine Urobilinogen < 2.0 EU/DL (0.2-1.0); WBC,Urine 2 /HPF (0-6)
[2018-02-13] MEDS: CITALOPRAM 20 MG TABLET PO SCH (16:38)
[2018-02-13] MEDS: PANTOPRAZOLE INJ 200 MG in SODIUM CHLORIDE 0.9% 250 ML IV SCH (16:38)
[2018-02-13 18:25] LABS: Hematocrit 29.2 VOL% (42.0-52.0); Hemoglobin 9.3 GM/DL (14.0-18.0)
[2018-02-13] MEDS: MORPHINE 4 MG/1 ML VIAL IV PRN (20:10)
[2018-02-13] MEDS: DUTASTERIDE 0.5 MG CAPSULE PO SCH (20:11)
[2018-02-13 22:15] LABS: Hematocrit 24.9 VOL% (42.0-52.0)
[2018-02-13] MEDS ORDERED: SODIUM CHLORIDE 0.9% 1,000 ML IV PRN (22:31)
[2018-02-14] MEDS: MORPHINE 4 MG/1 ML VIAL IV PRN (00:28)
[2018-02-14] MEDS: PIPERACILLIN/TAZOBACTAM 3,375 MG in SODIUM CHLORIDE 0.9% 100 ML IV SCH ×3 (06:07→21:05)
[2018-02-14] MEDS: FUROSEMIDE 40 MG/4 ML VIAL IV SCH ×2 (07:58→16:50)
[2018-02-14 07:59] LABS: Basophils # 0.1 10*3/uL (0.0-0.2); Eosinophils # 0.5 10*3/uL (0.0-0.87); Eosinophils % 5.2 % (0.00-10.9); Hematocrit 28.7 VOL% (42.0-52.0); Hemoglobin 9.4 GM/DL (14.0-18.0); Immature Granulocytes % 0.5 %; Immature Granulocytes Absolute 0.05 #; Lymphocytes # 1.7 10*3/uL (1.4-4.0); Mean Corpuscular HGB Conc 32.8 GM/DL (32-36); Mean Corpuscular Hemoglobin 29 PG (27-34); Mean Corpuscular Volume 88.6 FL (87-102); Mean Platelet Volume 10.1 FL (9.6-12.0); Monocytes # 1.2 10*3/uL (0.11-0.8); Monocytes % 11.8 % (1.7-12.7); Neutrophils # 6.9 10*3/uL (1.4-7.4); Neutrophils % 65.5 % (38.7-73.9); Platelet Count 187 T/CUMM (130-400); Red Blood Count 3.24 MC/CUMM (3.8-5.5); Red Cell Distribution Width 16.4 % (9.3-17.3); White Blood Count 10.5 T/CUMM (4-12)
[2018-02-14 08:08] LABS: INR 1.4; PT Patient Result 14.2 SECS
[2018-02-14 08:23] LABS: Calcium 7.8 MG/DL (8.5-10.1); Osmolality,Calculated 294.6 MOS/KG (273-304)
[2018-02-14] MEDS ORDERED: ETOMIDATE 20 MG/10 ML VIAL IV ONE (09:00)
[2018-02-14] MEDS ORDERED: PROPOFOL 200 MG/20 ML VIAL IV ONE (09:00)
[2018-02-14] MEDS ORDERED: LIDOCAINE 100 MG/5 ML SYRINGE ONE (09:00)
[2018-02-14] MEDS: TAMSULOSIN 0.4 MG CAPSULE PO SCH ×2 (10:15→21:05)
[2018-02-14] MEDS: DIGOXIN 0.125 MG TABLET PO SCH (10:15)
[2018-02-14] MEDS: CITALOPRAM 20 MG TABLET PO SCH (10:15)
[2018-02-14] MEDS: DILTIAZEM CD 240 MG CAPSULE PO SCH (10:19)
[2018-02-14 12:00] LABS: Hematocrit 32.5 VOL% (42.0-52.0); Hemoglobin 10.8 GM/DL (14.0-18.0)
[2018-02-14] MEDS: ONDANSETRON 4 MG/2 ML VIAL IV PRN (14:07)
[2018-02-14 19:29] LABS: Hematocrit 28.9 VOL% (42.0-52.0); Hemoglobin 9.7 GM/DL (14.0-18.0)
[2018-02-14] MEDS: DUTASTERIDE 0.5 MG CAPSULE PO SCH (21:05)
[2018-02-14] MEDS: MELATONIN 3 MG TABLET PO PRN (21:05)
[2018-02-14] MEDS: PANTOPRAZOLE INJ 200 MG in SODIUM CHLORIDE 0.9% 250 ML IV SCH (21:06)
[2018-02-15 00:41] LABS: Hematocrit 27.8 VOL% (42.0-52.0); Hemoglobin 9.3 GM/DL (14.0-18.0)
[2018-02-15 00:59] LABS: Osmolality,Calculated 294.6 MOS/KG (273-304); Potassium 3.4 MMOL/L (3.5-5.1)
[2018-02-15 04:07] LABS: Basophils # 0.1 10*3/uL (0.0-0.2); Basophils % 1.4 % (0.0-0.8); Eosinophils # 0.9 10*3/uL (0.0-0.87); Eosinophils % 9.2 % (0.00-10.9); Hematocrit 27.6 VOL% (42.0-52.0); Hemoglobin 9.1 GM/DL (14.0-18.0); Immature Granulocytes % 0.6 %; Immature Granulocytes Absolute 0.06 #; Lymphocytes # 1.6 10*3/uL (1.4-4.0); Lymphocytes % 15.7 % (21.2-54.2); Mean Corpuscular Hemoglobin 29 PG (27-34); Mean Platelet Volume 10.3 FL (9.6-12.0); Monocytes # 1.3 10*3/uL (0.11-0.8); Neutrophils % 60.1 % (38.7-73.9); Platelet Count 200 T/CUMM (130-400); Red Cell Distribution Width 16.5 % (9.3-17.3); White Blood Count 9.9 T/CUMM (4-12)
[2018-02-15] MEDS: PIPERACILLIN/TAZOBACTAM 3,375 MG in SODIUM CHLORIDE 0.9% 100 ML IV SCH ×3 (04:56→21:21)
[2018-02-15 06:06] LABS: Hematocrit 29.3 VOL% (42.0-52.0); Hemoglobin 9.5 GM/DL (14.0-18.0)
[2018-02-15] MEDS: FUROSEMIDE 40 MG/4 ML VIAL IV SCH ×2 (08:20→17:45)
[2018-02-15] MEDS: DIGOXIN 0.125 MG TABLET PO SCH (08:20)
[2018-02-15] MEDS: CITALOPRAM 20 MG TABLET PO SCH (08:21)
[2018-02-15] MEDS: DILTIAZEM CD 240 MG CAPSULE PO SCH (08:21)
[2018-02-15] MEDS: TAMSULOSIN 0.4 MG CAPSULE PO SCH ×2 (08:21→21:21)
[2018-02-15] MEDS: POTASSIUM CHLORIDE 20 MEQ TABLET PO PRN ×3 (08:35→13:19)
[2018-02-15 13:16] LABS: Hematocrit 29.5 VOL% (42.0-52.0); Hemoglobin 9.6 GM/DL (14.0-18.0)
[2018-02-15] MEDS: busPIRone 5 MG TABLET PO SCH ×2 (15:00→21:21)
[2018-02-15 18:38] LABS: Hematocrit 29.6 VOL% (42.0-52.0); Hemoglobin 9.6 GM/DL (14.0-18.0)
[2018-02-15 19:37] LABS: Osmolality,Calculated 296.7 MOS/KG (273-304)
[2018-02-15] MEDS: DUTASTERIDE 0.5 MG CAPSULE PO SCH (21:23)
[2018-02-15] MEDS: PANTOPRAZOLE INJ 200 MG in SODIUM CHLORIDE 0.9% 250 ML IV SCH (22:06)
[2018-02-16 00:51] LABS: Hematocrit 28.3 VOL% (42.0-52.0); Hemoglobin 9.2 GM/DL (14.0-18.0)
[2018-02-16 04:49] LABS: Basophils # 0.1 10*3/uL (0.0-0.2); Basophils % 1.1 % (0.0-0.8); Eosinophils # 0.9 10*3/uL (0.0-0.87); Eosinophils % 9.8 % (0.00-10.9); Hematocrit 29.8 VOL% (42.0-52.0); Hemoglobin 9.7 GM/DL (14.0-18.0); Immature Granulocytes % 0.4 %; Immature Granulocytes Absolute 0.04 #; Lymphocytes # 1.5 10*3/uL (1.4-4.0); Lymphocytes % 15.3 % (21.2-54.2); Mean Corpuscular HGB Conc 32.6 GM/DL (32-36); Mean Corpuscular Hemoglobin 29 PG (27-34); Mean Corpuscular Volume 89.8 FL (87-102); Mean Platelet Volume 9.9 FL (9.6-12.0); Monocytes # 1.3 10*3/uL (0.11-0.8); Monocytes % 13.4 % (1.7-12.7); Neutrophils # 5.7 10*3/uL (1.4-7.4); Platelet Count 217 T/CUMM (130-400); Red Blood Count 3.32 MC/CUMM (3.8-5.5); Red Cell Distribution Width 16.7 % (9.3-17.3); White Blood Count 9.5 T/CUMM (4-12)
[2018-02-16 05:21] LABS: Calcium 8.2 MG/DL (8.5-10.1); Osmolality,Calculated 290.8 MOS/KG (273-304); Potassium 3.4 MMOL/L (3.5-5.1)
[2018-02-16] MEDS: POTASSIUM CHLORIDE 20 MEQ TABLET PO PRN ×2 (05:37→12:25)
[2018-02-16] MEDS: PIPERACILLIN/TAZOBACTAM 3,375 MG in SODIUM CHLORIDE 0.9% 100 ML IV SCH ×3 (06:10→21:09)
[2018-02-16] MEDS ORDERED: HEPARIN/NACL 0.9% 2 UNITS/ML 2,000 ML IV ONE (07:17)
[2018-02-16] MEDS ORDERED: MIDAZOLAM 2 MG/2 ML VIAL IV ONE (07:30)
[2018-02-16] MEDS ORDERED: fentaNYL 100 MCG/2 ML VIAL IV ONE (07:30)
[2018-02-16 07:32] LABS: Hematocrit 30.8 VOL% (42.0-52.0); Hemoglobin 9.9 GM/DL (14.0-18.0)
[2018-02-16] MEDS ORDERED: fentaNYL 100 MCG/2 ML VIAL ONE (09:14)
[2018-02-16] MEDS ORDERED: MIDAZOLAM 2 MG/2 ML VIAL ONE (09:14)
[2018-02-16] MEDS ORDERED: HEPARIN/NACL 0.9% 2 UNITS/ML 1,000 ML IV ONE (09:26)
[2018-02-16] MEDS: PANTOPRAZOLE 40 MG VIAL IV SCH ×2 (11:01→20:59)
[2018-02-16] MEDS: FUROSEMIDE 40 MG/4 ML VIAL IV SCH ×2 (11:03→17:47)
[2018-02-16] MEDS ORDERED: POTASSIUM CHLORIDE 20 MEQ TABLET PO ONE (12:16)
[2018-02-16] MEDS: DILTIAZEM CD 240 MG CAPSULE PO SCH (12:24)
[2018-02-16] MEDS: CITALOPRAM 20 MG TABLET PO SCH (12:24)
[2018-02-16] MEDS: DIGOXIN 0.125 MG TABLET PO SCH (12:24)
[2018-02-16] MEDS: busPIRone 5 MG TABLET PO SCH ×2 (12:24→20:57)
[2018-02-16] MEDS: TAMSULOSIN 0.4 MG CAPSULE PO SCH ×2 (12:25→20:57)
[2018-02-16] MEDS: DUTASTERIDE 0.5 MG CAPSULE PO SCH (20:57)
[2018-02-16] MEDS: MELATONIN 3 MG TABLET PO PRN (21:56)
[2018-02-17] MEDS: PIPERACILLIN/TAZOBACTAM 3,375 MG in SODIUM CHLORIDE 0.9% 100 ML IV SCH ×2 (05:08→13:10)
[2018-02-17 05:26] LABS: Basophils # 0.1 10*3/uL (0.0-0.2); Basophils % 0.7 % (0.0-0.8); Eosinophils # 1.1 10*3/uL (0.0-0.87); Hematocrit 29.2 VOL% (42.0-52.0); Immature Granulocytes % 0.5 %; Immature Granulocytes Absolute 0.05 #; Lymphocytes # 1.7 10*3/uL (1.4-4.0); Lymphocytes % 15.6 % (21.2-54.2); Mean Corpuscular HGB Conc 30.8 GM/DL (32-36); Mean Corpuscular Hemoglobin 28 PG (27-34); Mean Corpuscular Volume 90.7 FL (87-102); Mean Platelet Volume 10.4 FL (9.6-12.0); Monocytes # 1.4 10*3/uL (0.11-0.8); Monocytes % 12.6 % (1.7-12.7); Neutrophils # 6.7 10*3/uL (1.4-7.4); Neutrophils % 60.6 % (38.7-73.9); Platelet Count 257 T/CUMM (130-400); Red Blood Count 3.22 MC/CUMM (3.8-5.5); Red Cell Distribution Width 16.5 % (9.3-17.3)
[2018-02-17 05:50] LABS: Calcium 8.6 MG/DL (8.5-10.1); Osmolality,Calculated 286.1 MOS/KG (273-304); Potassium 4.1 MMOL/L (3.5-5.1)
[2018-02-17] MEDS ORDERED: INFLUENZA VIRUS VACCINE 0.5 ML SYRINGE IM ONE (07:23)
[2018-02-17] MEDS: DILTIAZEM CD 240 MG CAPSULE PO SCH (08:01)
[2018-02-17] MEDS: CITALOPRAM 20 MG TABLET PO SCH (08:01)
[2018-02-17] MEDS: TAMSULOSIN 0.4 MG CAPSULE PO SCH ×2 (08:01→20:40)
[2018-02-17] MEDS: busPIRone 5 MG TABLET PO SCH ×2 (08:01→20:41)
[2018-02-17] MEDS: PANTOPRAZOLE 40 MG VIAL IV SCH ×2 (08:03→20:39)
[2018-02-17] MEDS: FUROSEMIDE 40 MG/4 ML VIAL IV SCH (08:03)
[2018-02-17] MEDS: DIGOXIN 0.125 MG TABLET PO SCH (09:39)
[2018-02-17] MEDS: FUROSEMIDE 40 MG TABLET PO SCH (15:03)
[2018-02-17] MEDS: GLIMEPIRIDE 4 MG TABLET PO SCH ×2 (15:03→20:40)
[2018-02-17] MEDS: WARFARIN 2 MG TABLET PO SCH (17:04)
[2018-02-17] MEDS: MELATONIN 3 MG TABLET PO PRN (20:39)
[2018-02-17] MEDS: DUTASTERIDE 0.5 MG CAPSULE PO SCH (20:40)
[2018-02-18 05:40] LABS: Basophils # 0.1 10*3/uL (0.0-0.2); Basophils % 0.5 % (0.0-0.8); Eosinophils # 0.8 10*3/uL (0.0-0.87); Eosinophils % 6.9 % (0.00-10.9); Hematocrit 28.7 VOL% (42.0-52.0); Hemoglobin 8.9 GM/DL (14.0-18.0); Immature Granulocytes % 0.4 %; Immature Granulocytes Absolute 0.04 #; Lymphocytes # 1.8 10*3/uL (1.4-4.0); Lymphocytes % 16.8 % (21.2-54.2); Mean Corpuscular Hemoglobin 28 PG (27-34); Mean Corpuscular Volume 90.5 FL (87-102); Mean Platelet Volume 10.3 FL (9.6-12.0); Monocytes # 1.5 10*3/uL (0.11-0.8); Monocytes % 13.5 % (1.7-12.7); Neutrophils # 6.8 10*3/uL (1.4-7.4); Neutrophils % 61.9 % (38.7-73.9); Platelet Count 238 T/CUMM (130-400); Red Blood Count 3.17 MC/CUMM (3.8-5.5); Red Cell Distribution Width 16.4 % (9.3-17.3); White Blood Count 10.9 T/CUMM (4-12)
[2018-02-18 05:51] LABS: INR 1.1; PT Patient Result 11.7 SECS
[2018-02-18 06:06] LABS: Calcium 8.4 MG/DL (8.5-10.1); Potassium 3.2 MMOL/L (3.5-5.1)
[2018-02-18] MEDS: POTASSIUM CHLORIDE 20 MEQ TABLET PO PRN ×4 (07:31→21:07)
[2018-02-18] MEDS: PANTOPRAZOLE 40 MG VIAL IV SCH ×2 (08:23→21:07)
[2018-02-18] MEDS: TAMSULOSIN 0.4 MG CAPSULE PO SCH ×2 (08:23→21:07)
[2018-02-18] MEDS: CITALOPRAM 20 MG TABLET PO SCH (08:24)
[2018-02-18] MEDS: DIGOXIN 0.125 MG TABLET PO SCH (08:24)
[2018-02-18] MEDS: busPIRone 5 MG TABLET PO SCH ×2 (08:24→21:07)
[2018-02-18] MEDS: FUROSEMIDE 40 MG TABLET PO SCH (08:24)
[2018-02-18] MEDS: DILTIAZEM CD 240 MG CAPSULE PO SCH (08:24)
[2018-02-18] MEDS: GLIMEPIRIDE 4 MG TABLET PO SCH ×2 (08:24→21:07)
[2018-02-18] MEDS ORDERED: WARFARIN 4 MG TABLET PO SCH (18:00)
[2018-02-18] MEDS: DUTASTERIDE 0.5 MG CAPSULE PO SCH (21:07)
[2018-02-18] MEDS: MELATONIN 3 MG TABLET PO PRN (21:07)
[2018-02-19 02:48] LABS: Basophils # 0.1 10*3/uL (0.0-0.2); Basophils % 0.7 % (0.0-0.8); Eosinophils # 0.8 10*3/uL (0.0-0.87); Eosinophils % 7.9 % (0.00-10.9); Hematocrit 26.7 VOL% (42.0-52.0); Hemoglobin 8.5 GM/DL (14.0-18.0); Immature Granulocytes % 0.4 %; Immature Granulocytes Absolute 0.04 #; Lymphocytes % 19.1 % (21.2-54.2); Mean Corpuscular HGB Conc 31.8 GM/DL (32-36); Mean Corpuscular Hemoglobin 29 PG (27-34); Mean Corpuscular Volume 89.9 FL (87-102); Mean Platelet Volume 10.3 FL (9.6-12.0); Monocytes # 1.5 10*3/uL (0.11-0.8); Monocytes % 13.9 % (1.7-12.7); Neutrophils # 6.1 10*3/uL (1.4-7.4); Platelet Count 224 T/CUMM (130-400); Red Blood Count 2.97 MC/CUMM (3.8-5.5); White Blood Count 10.5 T/CUMM (4-12)
[2018-02-19 03:26] LABS: INR 1.1; PT Patient Result 11.4 SECS
[2018-02-19 03:32] LABS: Calcium 8.4 MG/DL (8.5-10.1); Osmolality,Calculated 290.3 MOS/KG (273-304); Potassium 3.9 MMOL/L (3.5-5.1)
[2018-02-19] MEDS: DILTIAZEM CD 240 MG CAPSULE PO SCH (11:54)
[2018-02-19] MEDS: busPIRone 5 MG TABLET PO SCH ×2 (11:54→20:33)
[2018-02-19] MEDS: FUROSEMIDE 40 MG TABLET PO SCH (11:54)
[2018-02-19] MEDS: DIGOXIN 0.125 MG TABLET PO SCH (11:54)
[2018-02-19] MEDS: CITALOPRAM 20 MG TABLET PO SCH (11:54)
[2018-02-19] MEDS: TAMSULOSIN 0.4 MG CAPSULE PO SCH ×2 (11:54→20:33)
[2018-02-19] MEDS: GLIMEPIRIDE 4 MG TABLET PO SCH ×2 (11:54→20:33)
[2018-02-19] MEDS: PANTOPRAZOLE 40 MG VIAL IV SCH ×2 (11:55→20:31)
[2018-02-19] MEDS ORDERED: CLORAZEPATE 3.75 MG TABLET PO ONE (15:59)
[2018-02-19 16:25] LABS: Hematocrit 27.2 VOL% (42.0-52.0); Hemoglobin 8.7 GM/DL (14.0-18.0)
[2018-02-19] MEDS: WARFARIN 2 MG TABLET PO SCH (17:00)
[2018-02-19] MEDS: DUTASTERIDE 0.5 MG CAPSULE PO SCH (20:33)
[2018-02-19] MEDS: MELATONIN 3 MG TABLET PO PRN (20:33)
[2018-02-20 04:00] LABS: Basophils # 0.1 10*3/uL (0.0-0.2); Basophils % 0.7 % (0.0-0.8); Eosinophils # 0.8 10*3/uL (0.0-0.87); Eosinophils % 7.8 % (0.00-10.9); Hematocrit 27.2 VOL% (42.0-52.0); Hemoglobin 8.7 GM/DL (14.0-18.0); Immature Granulocytes % 0.3 %; Immature Granulocytes Absolute 0.03 #; Lymphocytes # 2.1 10*3/uL (1.4-4.0); Lymphocytes % 20.4 % (21.2-54.2); Mean Corpuscular Hemoglobin 29 PG (27-34); Mean Corpuscular Volume 90.4 FL (87-102); Mean Platelet Volume 10.5 FL (9.6-12.0); Monocytes # 1.3 10*3/uL (0.11-0.8); Monocytes % 12.9 % (1.7-12.7); Neutrophils # 5.9 10*3/uL (1.4-7.4); Neutrophils % 57.9 % (38.7-73.9); Platelet Count 223 T/CUMM (130-400); Red Blood Count 3.01 MC/CUMM (3.8-5.5); Red Cell Distribution Width 16.1 % (9.3-17.3); White Blood Count 10.2 T/CUMM (4-12)
[2018-02-20 04:17] LABS: Calcium 8.6 MG/DL (8.5-10.1); Osmolality,Calculated 287.1 MOS/KG (273-304); Potassium 3.6 MMOL/L (3.5-5.1)
[2018-02-20 04:18] LABS: INR 1.1; PT Patient Result 11.1 SECS
[2018-02-20] MEDS: POLYETHYLENE GLYCOL POWDER 17 GM PACK PO SCH ×2 (05:46→09:16)
[2018-02-20 08:06] VITALS: BP 127/61
[2018-02-20] MEDS: DILTIAZEM CD 240 MG CAPSULE PO SCH (09:15)
[2018-02-20] MEDS: busPIRone 5 MG TABLET PO SCH (09:15)
[2018-02-20] MEDS: FUROSEMIDE 40 MG TABLET PO SCH (09:15)
[2018-02-20] MEDS: DIGOXIN 0.125 MG TABLET PO SCH (09:15)
[2018-02-20] MEDS: GLIMEPIRIDE 4 MG TABLET PO SCH (09:15)
[2018-02-20] MEDS: TAMSULOSIN 0.4 MG CAPSULE PO SCH (09:15)
[2018-02-20] MEDS: CITALOPRAM 20 MG TABLET PO SCH (09:16)
== END 2018-02-20 09:45 | disposition swing bed (61) | DRG 356 ==
LOC: EDBD → EDUNIT# → N.ED 23:23 → SUATTDRO 02-11 02:06 → N.EDINP 02-11 02:06 → N.2E 02-11 03:16 → N.ICU 02-12 10:29 → N.4E 02-16 15:28
PROVIDERS: ADMIT Hospitalist; ATTEND Internal Medicine

== ENCOUNTER 2020-10-21 15:17 | Inpatient (IN) ==
[2020-10-21] MEDS ORDERED: ALBUTEROL 2.5 MG/3 ML NEB RESP TX PRN (16:29)
[2020-10-21] MEDS ORDERED: GLUCAGON 1 MG VIAL IM PRN (16:33)
[2020-10-21] MEDS ORDERED: DEXTROSE 50% 25 GM/50 ML VIAL IV PRN (16:33)
[2020-10-21] MEDS ORDERED: PANTOPRAZOLE 40 MG VIAL IV SCH (17:00)
[2020-10-21] MEDS ORDERED: DILTIAZEM CD 240 MG CAPSULE PO SCH (17:33)
[2020-10-21] MEDS: FUROSEMIDE 40 MG/4 ML VIAL IV SCH (17:39)
[2020-10-21] MEDS ORDERED: METOPROLOL TARTRATE 25 MG TABLET PO PRN (17:47)
[2020-10-21] MEDS: busPIRone 5 MG TABLET PO SCH (20:41)
[2020-10-21] MEDS: INSULIN LISPRO 100 UNIT/ML SUBCUT SCH (20:50)
[2020-10-22 00:56] LABS: Bilirubin,Urine Negative (Negative); Blood, Urine Negative (Negative); Glucose,Urine (UA) Negative (Negative); Hyaline Casts,Urine 3 /LPF (0-3); Ketones,Urine Negative (Negative); Mucus,Urine Occasional /LPF (Occasional); Nitrite,Urine Negative (Negative); Protein,Urine Negative; RBC,Urine <1 /HPF (0-4); Urine Appearance CLEAR (Clear); Urine Color Straw (Yellow); Urine Specific Gravity 1.008 (1.001-1.035); Urine Urobilinogen < 2.0 EU/DL (0.2-1.0)
[2020-10-22 05:02] LABS: Basophils % 0.3 % (0.0-0.8); Eosinophils % 0.1 % (0.00-10.9); Hematocrit 35.4 VOL% (42.0-52.0); Hemoglobin 11.2 GM/DL (14.0-18.0); Immature Granulocytes % 0.5 %; Immature Granulocytes Absolute 0.06 #; Lymphocytes # 1.2 10*3/uL (1.4-4.0); Mean Corpuscular HGB Conc 31.6 GM/DL (32-36); Mean Corpuscular Volume 90.3 FL (87-102); Mean Platelet Volume 10.1 FL (9.6-12.0); Monocytes % 12.4 % (1.7-12.7); Neutrophils % 76.7 % (38.7-73.9); Platelet Count 260 T/CUMM (130-400); Red Blood Count 3.92 MC/CUMM (3.8-5.5); Red Cell Distribution Width 15.1 % (9.3-17.3); White Blood Count 11.9 T/CUMM (4-12)
[2020-10-22 05:22] LABS: INR 3.8
[2020-10-22 05:23] LABS: PT Patient Result 39.3 SECS (10.5-12.0)
[2020-10-22 05:38] LABS: Albumin 2.9 G/DL (3.4-5.0); Bilirubin,Total 0.8 MG/DL (0.2-1.0); Calcium 8.5 MG/DL (8.5-10.1); Osmolality,Calculated 276.5 MOS/KG (273-304); Potassium 3.1 MMOL/L (3.5-5.1); Thyroid Stimulating Hormone 1.05 uIU/ml (0.358-3.74); Total Protein 7.1 G/DL (6.4-8.2)
[2020-10-22] MEDS: INSULIN LISPRO 100 UNIT/ML SUBCUT SCH ×4 (08:10→20:05)
[2020-10-22] MEDS: busPIRone 5 MG TABLET PO SCH ×2 (08:34→20:10)
[2020-10-22] MEDS: DIGOXIN 0.125 MG TABLET PO SCH (08:35)
[2020-10-22] MEDS: DILTIAZEM CD 180 MG CAPSULE PO SCH (08:36)
[2020-10-22] MEDS: FUROSEMIDE 40 MG/4 ML VIAL IV SCH ×2 (08:40→15:22)
[2020-10-22] MEDS: POTASSIUM CHLORIDE 20 MEQ TABLET PO SCH ×4 (08:54→20:10)
[2020-10-22] MEDS: TAMSULOSIN 0.4 MG CAPSULE PO SCH ×2 (08:55→20:10)
[2020-10-22] MEDS: PANTOPRAZOLE 40 MG TABLET PO SCH ×2 (08:56→20:10)
[2020-10-22] MEDS: traMADol 50 MG TABLET PO PRN (15:22)
[2020-10-22] MEDS: SKIN HEALING OINT (AQUAPHOR) 50 GM TUBE TOP SCH (16:52)
[2020-10-22] MEDS ORDERED: FUROSEMIDE 40 MG/4 ML VIAL IV SCH (17:18)
[2020-10-22] MEDS ORDERED: DILTIAZEM CD 240 MG CAPSULE PO SCH (17:23)
[2020-10-22] MEDS ORDERED: traMADol 50 MG TABLET PO ONE (17:25)
[2020-10-22] MEDS: ASCORBIC ACID 500 MG TABLET PO SCH (20:11)
[2020-10-23] MEDS: traMADol 50 MG TABLET PO PRN ×2 (00:21→20:23)
[2020-10-23 04:36] LABS: INR 2.4; PT Patient Result 25.6 SECS (10.5-12.0)
[2020-10-23 04:47] LABS: Osmolality,Calculated 281.5 MOS/KG (273-304); Potassium 3.8 MMOL/L (3.5-5.1)
[2020-10-23] MEDS ORDERED: NIFEdipine 10 MG CAPSULE PO PRN (07:43)
[2020-10-23] MEDS: DILTIAZEM CD 180 MG CAPSULE PO SCH (08:44)
[2020-10-23] MEDS: PANTOPRAZOLE 40 MG TABLET PO SCH ×2 (08:44→20:20)
[2020-10-23] MEDS: busPIRone 5 MG TABLET PO SCH ×2 (08:44→20:21)
[2020-10-23] MEDS: ASCORBIC ACID 500 MG TABLET PO SCH ×2 (08:45→20:21)
[2020-10-23] MEDS: DIGOXIN 0.125 MG TABLET PO SCH (08:46)
[2020-10-23] MEDS: CITALOPRAM 20 MG TABLET PO SCH (08:46)
[2020-10-23] MEDS: FUROSEMIDE 40 MG TABLET PO SCH ×2 (08:47→16:44)
[2020-10-23] MEDS: WARFARIN 2 MG TABLET PO SCH (08:47)
[2020-10-23] MEDS: lisinopriL 10 MG TABLET PO SCH ×2 (08:47→20:20)
[2020-10-23] MEDS: TAMSULOSIN 0.4 MG CAPSULE PO SCH ×2 (08:47→20:21)
[2020-10-23] MEDS: SKIN HEALING OINT (AQUAPHOR) 50 GM TUBE TOP SCH (08:56)
[2020-10-23] MEDS ORDERED: POTASSIUM CHLORIDE 20 MEQ TABLET PO ONE (09:28)
[2020-10-23] MEDS: INSULIN LISPRO 100 UNIT/ML SUBCUT SCH ×4 (09:53→20:24)
[2020-10-23] MEDS: MELATONIN 3 MG TABLET PO PRN (20:20)
[2020-10-24 06:21] LABS: INR 1.9; PT Patient Result 20.2 SECS (10.5-12.0)
[2020-10-24 06:50] LABS: Calcium 8.6 MG/DL (8.5-10.1); Osmolality,Calculated 287.3 MOS/KG (273-304); Potassium 3.5 MMOL/L (3.5-5.1)
[2020-10-24] MEDS: DIGOXIN 0.125 MG TABLET PO SCH (08:30)
[2020-10-24] MEDS: lisinopriL 10 MG TABLET PO SCH ×2 (08:30→22:38)
[2020-10-24] MEDS: DILTIAZEM CD 180 MG CAPSULE PO SCH (08:30)
[2020-10-24] MEDS: PANTOPRAZOLE 40 MG TABLET PO SCH ×2 (08:30→22:38)
[2020-10-24] MEDS: CITALOPRAM 20 MG TABLET PO SCH (08:30)
[2020-10-24] MEDS: busPIRone 5 MG TABLET PO SCH ×2 (08:30→22:37)
[2020-10-24] MEDS: SKIN HEALING OINT (AQUAPHOR) 50 GM TUBE TOP SCH (08:30)
[2020-10-24] MEDS: ASCORBIC ACID 500 MG TABLET PO SCH ×2 (08:30→22:39)
[2020-10-24] MEDS: WARFARIN 2 MG TABLET PO SCH (08:30)
[2020-10-24] MEDS: TAMSULOSIN 0.4 MG CAPSULE PO SCH ×2 (08:30→22:37)
[2020-10-24] MEDS ORDERED: POTASSIUM CHLORIDE 20 MEQ TABLET PO ONE (09:31)
[2020-10-24] MEDS: INSULIN LISPRO 100 UNIT/ML SUBCUT SCH ×4 (09:40→22:40)
[2020-10-24] MEDS: FUROSEMIDE 40 MG TABLET PO SCH ×2 (09:40→16:10)
[2020-10-24] MEDS: gemfibroziL 600 MG TABLET PO SCH (11:42)
[2020-10-24] MEDS: metFORMIN 500 MG TABLET PO SCH ×2 (11:42→22:37)
[2020-10-24] MEDS: MELATONIN 3 MG TABLET PO PRN (22:37)
[2020-10-25 06:39] LABS: INR 1.8; PT Patient Result 19.8 SECS (10.5-12.0)
[2020-10-25 06:54] LABS: Calcium 8.9 MG/DL (8.5-10.1); Osmolality,Calculated 289.1 MOS/KG (273-304); Potassium 3.3 MMOL/L (3.5-5.1)
[2020-10-25] MEDS ORDERED: WARFARIN 4 MG TABLET PO SCH (09:00)
[2020-10-25] MEDS ORDERED: POTASSIUM CHLORIDE 20 MEQ TABLET PO SCH (09:00)
[2020-10-25] MEDS: TAMSULOSIN 0.4 MG CAPSULE PO SCH (09:34)
[2020-10-25] MEDS: DIGOXIN 0.125 MG TABLET PO SCH (09:34)
[2020-10-25] MEDS: DILTIAZEM CD 180 MG CAPSULE PO SCH (09:34)
[2020-10-25] MEDS: metFORMIN 500 MG TABLET PO SCH (09:34)
[2020-10-25] MEDS: FUROSEMIDE 40 MG TABLET PO SCH (09:34)
[2020-10-25] MEDS: busPIRone 5 MG TABLET PO SCH (09:34)
[2020-10-25] MEDS: gemfibroziL 600 MG TABLET PO SCH (09:34)
[2020-10-25] MEDS: PANTOPRAZOLE 40 MG TABLET PO SCH (09:35)
[2020-10-25] MEDS: CITALOPRAM 20 MG TABLET PO SCH (09:35)
[2020-10-25] MEDS: ASCORBIC ACID 500 MG TABLET PO SCH (09:35)
[2020-10-25] MEDS: INSULIN LISPRO 100 UNIT/ML SUBCUT SCH ×2 (09:35→13:09)
[2020-10-25] MEDS: lisinopriL 10 MG TABLET PO SCH (09:35)
[2020-10-25] MEDS ORDERED: POTASSIUM CHLORIDE 20 MEQ TABLET PO ONE (11:00)
[2020-10-25] MEDS ORDERED: SPIRONOLACTONE 25 MG TABLET PO SCH (11:30)
[2020-10-25 11:38] VITALS: BP 140/75
[2020-10-26] MEDS ORDERED: FUROSEMIDE 40 MG TABLET PO SCH (09:00)
== END 2020-10-25 14:02 | disposition home or self-care (01) | DRG 291 ==
LOC: N.ICU 16:46 → SUATTDRO 16:46 → N.3E 10-24 17:53
PROVIDERS: ADMIT Internal Medicine; ATTEND Hospitalist